=== PATIENT | male | born 1960 | race Caucasian/White ===

== ENCOUNTER → 2019-09-18 11:18 | Outpatient (BNVA) | payer MEDICAID, SELFPAY | PROVIDERS: Family Provider Family Medicine; Visit Provider Family Medicine | DX: I25.10 Atherosclerotic heart disease of native coronary artery without angina pectoris (principal); J44.9 Chronic obstructive pulmonary disease, unspecified; K76.9 Liver disease, unspecified; E78.5 Hyperlipidemia, unspecified; G62.9 Polyneuropathy, unspecified; R53.83 Other fatigue; E03.9 Hypothyroidism, unspecified | CPT/HCPCS: 85025 ==

== ENCOUNTER 2019-10-18 08:32 | Outpatient (CLI) | payer MEDICAID, SELFPAY ==
--- NOTE | 2019-10-18 08:45 | US_ITS ---
WS: [id number] Complete ABDOMINAL ULTRASOUND HISTORY: Hx liver dz, Abdominal bloating COMPARISON: 03/08/2019 Liver: 18.9 cm in length. Liver is moderately enlarged with mild hepatic steatosis. No bile duct dila tation. Gallbladder: Gallbladder is abnormally distended. Mildly hydropic gallbladder with a transverse diame ter 4.7 cm. Similar pattern to the prior CTA from 03/08/2019. No stones are identified today. Stones w ere evident on a prior CT. No gallbladder wall thickening. Positive Vale sign. Gallbladder wall thickness: 0.2 cm. Pancreas: Normal size and echogenicity. CBD: 0.4 cm. Right kidney: 12.5 cm x 4.2 cm x 4.4 cm. No mass, cortical thickening or hydronephrosis. Left kidney: 10.1 cm x 6.3 cm x 6.7 cm. No mass, cortical thickening or hydronephrosis. Spleen: Normal size and echogenicity. Abdominal aorta and IVC are within normal limits. No ascites. US/US abdomen complete* [id number] IMPRESSION: 1. Mildly hydropic gallbladder. No stones identified today. Stones have been p reviously seen within the gallbladder. Patient does demonstrate a positive Murp hy sign. Common bile duct is not evident today but a small amount of sludge or stones in the common bile duct cannot be excluded. 2. Common bile duct not evident. 3. Hepatomegaly and hepatic steatosis. Attempted to contact Dr. Pendleton with report. Neither Dr. Pendleton or her nurs e were available at this time. Message was left on the answering service for em to review the report. Patient will be given the option to report to the [facility] department.
== END 2019-10-18 08:33 | disposition home or self-care (01) ==
PROVIDERS: Family Provider Family Medicine; Visit Provider Family Medicine
DX: K76.9 Liver disease, unspecified (principal); R14.0 Abdominal distension (gaseous); R16.0 Hepatomegaly, not elsewhere classified; K76.0 Fatty (change of) liver, not elsewhere classified
CPT/HCPCS: 76700

== ENCOUNTER 2019-10-20 10:43 | Outpatient (CLI) | payer MEDICAID, SELFPAY ==
[2019-10-20 11:51] LABS: Basophils # 0.1 10^3/uL (0.0-0.1); Basophils % 1.6 %; Eosinophils # 0.2 10^3/uL (0.0-0.8); Eosinophils % 1.9 %; Hematocrit 35.7 % (42.0-52.0); Mean Corpuscular HGB Conc 33.6 g/dL (30.0-36.0); Mean Corpuscular Hemoglobin 36.3 pg (28.0-34.0); Mean Corpuscular Volume 107.9 fL (80-94); Mean Platelet Volume 10.3 fL (7.4-10.4); Monocytes # 1.1 10^3/uL (0.2-0.9); Monocytes % 12.2 %; Neutrophils # 4.4 10^3/uL (1.8-7.7); Neutrophils % 49.8 %; Nucleated Red Blood Cells % 0 %; Platelet Count 102 10^3/cmm (130-400); Red Blood Count 3.31 10^6/uL (4.1-5.3); White Blood Count 8.8 10^3/uL (4.0-10.0)
[2019-10-20 11:56] LABS: INR 1.91 (0.8-1.2)
== END 2019-10-20 10:44 | disposition home or self-care (01) ==
LOC: LAB 10:47
PROVIDERS: PCP Family Medicine; Visit Provider Surgery
DX: K76.9 Liver disease, unspecified (principal)
CPT/HCPCS: 85025; 85610

== ENCOUNTER 2019-10-25 09:28 | Outpatient (CLI) | payer MEDICAID, SELFPAY ==
[2019-10-25 10:30] LABS: Alanine Aminotransferase 22 U/L (0-41); Albumin Level 3.4 g/dL (3.5-5.2); Alkaline Phosphatase 214 IU/L (40-130); Anion Gap 14.4 (5-19); Aspartate Amino Transferase 52 U/L (0-40); Blood Urea Nitrogen 8 mg/dL (6-20); Calcium 9.9 mg/dL (8.5-10.5); Carbon Dioxide 26 mmol/L (22-29); Chloride 101 mmol/L (98-107); Globulin 4.8 g/dL (1.3-4.6); Glomerular Filtration Rate 99.3 mL/min (90-130); Glucose 121 mg/dL (65-115); Osmolality Calculated 283 mOsm/kg (285-295); Potassium 3.4 mmol/L (3.5-5.1); Sodium 138 mmol/L (136-145); Total Bilirubin 6.6 mg/dL (0.15-1.2); Total Protein 8.2 g/dL (6.6-8.7)
== END 2019-10-25 09:29 | disposition home or self-care (01) ==
LOC: LAB 09:31
PROVIDERS: PCP Family Medicine; Visit Provider Surgery
DX: K76.9 Liver disease, unspecified (principal)
CPT/HCPCS: 80053

== ENCOUNTER → 2019-11-01 11:45 | Outpatient (BNVA) | payer MEDICAID, SELFPAY | PROVIDERS: PCP Family Medicine; Referring Provider Surgery; Visit Provider Internal Medicine | DX: K70.9 Alcoholic liver disease, unspecified (principal); K75.81 Nonalcoholic steatohepatitis (NASH); B19.20 Unspecified viral hepatitis C without hepatic coma; R10.11 Right upper quadrant pain | CPT/HCPCS: 80053; 80061; 82105; 86705; 86706; 86709; 86803; 87340 ==

== ENCOUNTER 2019-11-03 09:12 | Outpatient (CLI) | payer MEDICAID, SELFPAY ==
--- NOTE | 2019-11-03 09:41 | NM_ITS ---
WS: [id number] NUCLEAR MEDICINE HIDA SCAN HISTORY: UNSPECIFIED ABDOMINAL PAIN COMPARISON: Abdomen ultrasound 10/18/2019 TECHNIQUE: The patient was intravenously injected with 7.9 mCi of TC99m Mebrofenin. Immediate imaging over the right upper quadrant was followed by 5 minute image and additional images for a total of 60 minutes. Normal uptake of radiotracer throughout the liver. The gallbladder is not identified at 120 minutes. No hyperemia of the gallbladder fossa. Activity in the proximal small bowel was seen by 20 minutes. Good washout of the radiotracer from the liver by 120 minutes. NM/NM hepatobiliary wo phar [id number] IMPRESSION: 1. No common bile duct obstruction. 2. Gallbladder is not identified. Cystic duct obstruction versus overly disten ded gallbladder preventing reflux of radiotracer should be considered as possi ble etiologies.
== END 2019-11-03 09:13 | disposition home or self-care (01) ==
LOC: RAD 09:15
PROVIDERS: PCP Family Medicine; Visit Provider Surgery
DX: R10.9 Unspecified abdominal pain (principal)
CPT/HCPCS: 78226; A9537

== ENCOUNTER 2019-11-26 14:20 | Emergency (ER) | payer MEDICAID, SELFPAY ==
[2019-11-26 14:41] VITALS: BP 135/61; PULSE 70; RESP 16; TEMP 37; O2SAT 97; BMI 28.1
--- NOTE | 2019-11-26 14:42 | ED_ITS ---
HPI - General Adult General: Chief complaint: Skin/Abscess/Foreign Body Stated complaint: bleeding ear post surgery Time Seen by Provider: 11/26/19 14:42 Source: patient Mode of arrival: ambulatory Limitations: no limitations History of Present Illness: HPI narrative: Patient comes in for persistent bleeding to the surgical wound of his left ear. 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 Patient has had persistent oozing and bleeding from the wound on and off since the surgery. Patient yesterday was seen in the emergency department at [facility] in [place] and a suture was introduced to the ear to control the bleeding. Patient has a history of liver disease and alcoholism. Patient reports no alcohol for the last 3 to 4 weeks. In which she has stopped in order to protect his liver. Patient does continue to smoke. Review of patient's medical records notes that patient takes aspirin and Plavix. Procedure was done by Dr. Moya through [facility] dermatology in [place]. Review of Systems General: Reports: 10 or more systems reviewed and unremarkable except in HPI and below Skin/Breast: Reports: other (Bleeding surgical wound left ear) PFSH ED PFSH: Medical History (Updated 11/26/19 @ 16:21 by JORDAN Cash) Alcoholic liver disease Chronic congestive heart failure Coronary artery disease without angina pectoris Gastroesophageal reflux disease Hyperlipidemia Hypertension Liver disease Neuropathy PAD (peripheral artery disease) Postprandial abdominal pain in right upper quadrant S/P angiogram of extremity Surgical History H/O vasectomy History of colonoscopy with polypectomy History of coronary angioplasty with insertion of stent Family History Denies family history of Anesthesia complication Bleeding disorder Social History (Updated 11/20/19 @ 10:51 by Rose Baker CMA) Smoking and tobacco status: current every day smoker cigarettes Packs smoked per day: 1 Quit status (tobacco): not considering quitting Alcohol intake: former Former alcohol use details: Quit November 05. Desire information about alcohol rehabilitation?: No Desire information about substance/drug rehabilitation?: No Current gender identity: Male Physical Exam Const: COMMON NORMALS: no acute distress and patient oriented x3 GENERAL APPEARANCE: cooperative HENMT: COMMON NORMALS: normocephalic and Normal external nose present HEAD & SCALP: normal to inspection and normocephalic NOSE: Normal external nose present MOUTH: Normal oral and palatal mucosa present Eye: GENERAL EYE: appearance normal, both eyes and all related structures Neck/C-Spine: COMMON NORMALS: full ROM Chest: COMMONS NORMALS: normal inspection of the chest Resp: COMMON NORMALS: normal respiratory effort EFFORT & INSPECTION: Yes able to speak in complete sentences Cardio: COMMON NORMALS: regular rate and regular rhythm RATE: regular rate RHYTHM: regular rhythm GI: COMMON NORMALS: non-tender Back/Pelvis: COMMON NORMALS: thoracic and lumbar spine normal to inspection Extremity: COMMON NORMALS: normal to inspection Neuro: COMMON NORMALS: patient oriented x3 and moves all extremities Psych: COMMON NORMALS: mental status grossly normal and cooperative Skin: NARRATIVE SKIN EXAM: Oozing surgical wound to the left earlobe. Sanguineous drainage is noted. Course ED course: 1634, talked with Lala German PA-C, at Dr. Moya's office regarding patient's persistent bleeding from surgical wound. She recommended we go ahead and redress and then have patient come to the office tomorrow for further evaluation and treatment. Vital Signs: Vital signs: Vital Signs Temperature 98.6 F 11/26/19 14:41 Pulse Rate 70 11/26/19 15:09 Respiratory Rate 16 11/26/19 15:09 Blood Pressure 142/65 11/26/19 15:09 Pulse Oximetry 97 11/26/19 15:09 MDM - General Adult MDM Narrative: Medical decision making narrative: Patient presents today with complaints of bleeding from surgical wound to the left ear. Patient had a squamous cell carcinoma removed by a Dr. Moya, intranet developer, at [facility] in [place]. On exam we note a oozing wound to the left earlobe. Respirations were even lungs were clear to auscultation. Patient did have a small hematoma extending down the right side of his neck. Differential diagnosis includes hematoma, liver disease, anemia, surgical bleeding. Surgicel was used to apply to the wound in order to stop bleeding. Patient had good results. Pressure dressing was applied and patient was recommended to leave the dressing in place. Contacted Dr. Moya's office and talk to on-call staff Lala German PA-C. She agreed to have patient follow-up in the morning at his office for further treatment as needed. Hemoglobin was 9.9. It was incidentally found patient to have a potassium of 2.6 patient was given 40 mg of potassium chloride p.o. and then written a prescription for 20 mEq daily for the next 14 days. Patient does routinely take furosemide but does not take potassium for supplementation. Reviewed exam with patient and family with recommendations for follow-up. Family reported understanding. Lab Data: Labs: Lab Results 11/26/19 11/26/19 11/26/19 Range/Units 15:20 15:20 15:20 WBC 7.4 (4.0-10.0) 10^3/ uL RBC 2.67 L (4.1-5.3) 10^6/u L Hgb 9.9 L (11.7-16.6) g/dL Hct 28.8 L (42.0-52.0) % MCV 107.9 H (80-94) fL MCH 37.1 H (28.0-34.0) pg MCHC 34.4 (30.0-36.0) g/dL RDW 17.3 H (12.1-15.1) % Plt Count 89 L (130-400) 10^3/c mm MPV 9.6 (7.4-10.4) fL Neut % (Auto) 56.3 % Lymph % (Auto) 19.7 % [place] % (Auto) 20.7 % Eos % (Auto) 1.4 % Baso % (Auto) 1.6 % Neut # (Auto) 4.2 (1.8-7.7) 10^3/u L Lymph # (Auto) 1.5 (0.8-4.8) 10^3/u L [place] # (Auto) 1.5 H (0.2-0.9) 10^3/u L Eos # (Auto) 0.1 (0.0-0.8) 10^3/u L Baso # (Auto) 0.1 (0.0-0.1) 10^3/u L Nucleated RBC % (a uto) 0 % Nucleated RBCs # 0.0 /100WBC PT 29.30 H (10.5-13.3) SECO NDS INR 2.65 H (0.8-1.2) Sodium 132 L (136-145) mmol/L Potassium 2.6 L* (3.5-5.1) mmol/L Chloride 95 L (98-107) mmol/L Carbon Dioxide 25 (22-29) mmol/L Anion Gap 14.6 (5-19) BUN 14 (6-20) mg/dL Creatinine 1.1 (0.7-1.2) mg/dL GFR Calculation 68.8 L (90-130) mL/min Glucose 126 H (65-115) mg/dL Calculated Osmolal ity 272 L (285-295) mOsm/k g Calcium 9.0 (8.5-10.5) mg/dL Total Bilirubin 9.2 H* (0.15-1.2) mg/dL AST 67 H (0-40) U/L ALT 37 (0-41) U/L Alkaline Phosphata se 185 H (40-130) IU/L Total Protein 6.8 (6.6-8.7) g/dL Albumin 2.7 L (3.5-5.2) g/dL Globulin 4.1 (1.3-4.6) g/dL Discharge Plan Discharge Patient Disposition: Home, Self-Care Clinical Impression: Alcoholic liver disease, Drug-induced hypokalemia Postoperative hemorrhage of ear Qualifiers: Procedure type: ear Qualified Code(s): H95.41 - Postprocedural hemorrhage of ear and mastoid process following a procedure on the ear and mastoid process Condition: Stable Prescriptions: New potassium chloride 20 mEq tablet extended release 20 meq PO DAILY Qty: 14 RF: 0 No Action aspirin [Aspirin Low Dose] 81 mg tablet,delayed release (DR/EC) 81 mg PO DAILY RF: 0 atorvastatin 40 mg tablet 40 mg PO DAILY Qty: 30 RF: 0 carvedilol [Coreg] 3.125 mg tablet 3.125 mg PO BID 30 Days Qty: 60 RF: 0 clopidogrel [Plavix] 75 mg tablet 75 mg PO DAILY Qty: 30 RF: 0 fluticasone propionate [Flonase Allergy Relief] 50 mcg/actuation spray,suspension 1 spray INTRANASAL DAILY Qty: 18.2 RF: 0 furosemide 20 mg tablet 20 mg PO DAILY Qty: 30 RF: 0 pantoprazole 40 mg tablet,delayed release (DR/EC) 40 mg PO DAILY Qty: 30 RF: 0 gabapentin 300 mg capsule See Rx Instructions PO TID 30 Days Qty: 90 RF: 2 cephalexin 500 mg Tablet 500 mg PO TID RF: 0 Referrals: Estrella Pendleton MD [Primary Care Provider] - Discharge Diet: Usual diet Discharge Activity: Limit activity as instructed Activity Restrictions/Additional Instructions: Avoid dressing change. Keep pressure dressing intact. Follow-up with surgeon in the morning. Coding Level of Care Code ED Basket Mender for Chg Fwd Exam Comprehensive
[2019-11-26 15:09] VITALS: BP 142/65; PULSE 70; RESP 16; O2SAT 97
[2019-11-26 15:27] LABS: Basophils # 0.1 10^3/uL (0.0-0.1); Basophils % 1.6 %; Eosinophils # 0.1 10^3/uL (0.0-0.8); Eosinophils % 1.4 %; Hematocrit 28.8 % (42.0-52.0); Hemoglobin 9.9 g/dL (11.7-16.6); Lymphocytes # 1.5 10^3/uL (0.8-4.8); Lymphocytes % 19.7 %; Mean Corpuscular HGB Conc 34.4 g/dL (30.0-36.0); Mean Corpuscular Hemoglobin 37.1 pg (28.0-34.0); Mean Corpuscular Volume 107.9 fL (80-94); Mean Platelet Volume 9.6 fL (7.4-10.4); Monocytes # 1.5 10^3/uL (0.2-0.9); Monocytes % 20.7 %; Neutrophils # 4.2 10^3/uL (1.8-7.7); Neutrophils % 56.3 %; Nucleated Red Blood Cells % 0 %; Platelet Count 89 10^3/cmm (130-400); Red Blood Count 2.67 10^6/uL (4.1-5.3); Red Cell Distribution Width 17.3 % (12.1-15.1); White Blood Count 7.4 10^3/uL (4.0-10.0)
[2019-11-26 15:35] LABS: INR 2.65 (0.8-1.2)
[2019-11-26 15:40] LABS: Alanine Aminotransferase 37 U/L (0-41); Albumin Level 2.7 g/dL (3.5-5.2); Alkaline Phosphatase 185 IU/L (40-130); Anion Gap 14.6 (5-19); Aspartate Amino Transferase 67 U/L (0-40); Blood Urea Nitrogen 14 mg/dL (6-20); Carbon Dioxide 25 mmol/L (22-29); Chloride 95 mmol/L (98-107); Globulin 4.1 g/dL (1.3-4.6); Glomerular Filtration Rate 68.8 mL/min (90-130); Glucose 126 mg/dL (65-115); Osmolality Calculated 272 mOsm/kg (285-295); Sodium 132 mmol/L (136-145); Total Protein 6.8 g/dL (6.6-8.7)
[2019-11-26 15:46] LABS: Potassium 2.6 mmol/L (3.5-5.1)
[2019-11-26 15:47] LABS: Total Bilirubin 9.2 mg/dL (0.15-1.2)
[2019-11-26] MEDS: potassium chloride ER 10 mEq Tablet 40 MEQ PO (16:35)
[2019-11-26] MEDS: HYDROcodone-acetaminophen 7.5-325 mg Tablet 1 TAB PO (17:03)
[2019-11-26 17:08] VITALS: BP 128/66; PULSE 70; RESP 14; O2SAT 96
== END 2019-11-26 17:09 | disposition home or self-care (01) ==
PROVIDERS: Emergency Provider Nurse Practitioner Family; PCP Family Medicine
DX: H95.41 Postprocedural hemorrhage of ear and mastoid process following a procedure on the ear and mastoid process (principal); K70.9 Alcoholic liver disease, unspecified; E87.6 Hypokalemia; Z79.82 Long term (current) use of aspirin; Z79.02 Long term (current) use of antithrombotics/antiplatelets; I11.0 Hypertensive heart disease with heart failure; I50.9 Heart failure, unspecified; I25.10 Atherosclerotic heart disease of native coronary artery without angina pectoris; E78.5 Hyperlipidemia, unspecified; Z95.5 Presence of coronary angioplasty implant and graft; F17.210 Nicotine dependence, cigarettes, uncomplicated
CPT/HCPCS: 12345; 36415; 80053; 85025; 85610; 99281; 99283

== ENCOUNTER → 2019-12-04 13:47 | Outpatient (BNVA) | payer MEDICAID, SELFPAY | PROVIDERS: PCP Family Medicine; Visit Provider Family Medicine | DX: K70.9 Alcoholic liver disease, unspecified (principal); R10.11 Right upper quadrant pain | CPT/HCPCS: 80053; 85610 ==

== ENCOUNTER → 2019-12-11 09:19 | Day surgery (SDC) | payer MEDICAID, SELFPAY ==
[2019-12-07 14:36] VITALS: BMI 29.2
[2019-12-11] VITALS (7 sets, daily range): BP systolic 63–102; BP diastolic 49–73; PULSE 98–169; RESP 18–22; TEMP 36.8; O2SAT 94–100
--- NOTE | 2019-12-11 09:42 | ECG_ITS ---
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 Measurements Intervals [place] Rate: 168 P: IN: -1 QRS: -31 QRSD: 92 T: 125 QT: 235 QTc: 393 Interpretive Statements ATRIAL FIBRILLATION WITH RAPID VENTRICULAR RESPONSE MARKED LEFT AXIS DEVIATION [QRS AXIS < -30] ST DEVIATION AND MODERATE T-WAVE ABNORMALITY, CONSIDER LATERAL ISCHEMIA [-0.1+ mV T WAVE IN I/aVL/V5/V6] Compared to ECG 03/22/2019 06:01:03 Left-axis deviation now present T-wave abnormality now present Possible ischemia now present Sinus rhythm no longer present Electronically Signed On 12-11-2019 21:45:35 CDT by Forest Arnold M.D. [id number]
[2019-12-11] MEDS: lactated ringers 1,000 ML 999 ML IV (10:00)
[2019-12-11 11:06] LABS: Basophils # 0.1 10^3/uL (0.0-0.1); Basophils % 0.7 %; Eosinophils # 0.2 10^3/uL (0.0-0.8); Eosinophils % 1.2 %; Lymphocytes # 2.9 10^3/uL (0.8-4.8); Lymphocytes % 21.4 %; Mean Corpuscular HGB Conc 30.8 g/dL (30.0-36.0); Mean Corpuscular Hemoglobin 37.8 pg (28.0-34.0); Mean Corpuscular Volume 122.6 fL (80-94); Monocytes # 1.4 10^3/uL (0.2-0.9); Neutrophils # 9.1 10^3/uL (1.8-7.7); Neutrophils % 66.2 %; Nucleated Red Blood Cells % 0.1 %; Platelet Count 149 10^3/cmm (130-400); Red Blood Count 1.64 10^6/uL (4.1-5.3); White Blood Count 13.7 10^3/uL (4.0-10.0)
[2019-12-11 11:18] LABS: Hematocrit 20.1 % (42.0-52.0); Hemoglobin 6.2 g/dL (11.7-16.6)
--- NOTE | 2019-12-11 11:31 | PC.NURSE ---
0930- Pt here for EGD and COLONOSCOPY. Pt's heart rate was high, 120-150, and BP was low at 63/51. I notified anesthesia before we got pt ready, and Dr Hedrick ordered an EKG, some lab work, and an LR 500ml IV bolus. All this was done, and EKG showed A-fib with RVR. Notified Dr Michelle, and called heart care. His Program Facilitator could not see him and nurse said for pt to be taken to ER. 1100- Pt taken to ER, and report given. I also notified pts sister, who was his ride home.
--- NOTE | 2019-12-11 13:55 | ANES.PREANE2 ---
Pre-Anesthetic Assessment Pre-Anesthetic Assessment: Height/Weight: Height 1.7 m Weight 84.822 kg Temp Pulse Resp BP Pulse Ox 98.2 F 98 20 H 102/66 100 12/11/19 09:30 12/11/19 10:51 12/11/19 10:51 12/11/19 10:51 12/11/19 10:51 Preop Diagnosis: d Proposed Procedure: Operation Date: 12/11/19 10:00 Proposed Procedures p EGD/colon 33711 [id number] R10.11 K63.5(Not Applicable) - Salazar Michelle MD s Colonoscopy(Not Applicable) - Salazar Michelle MD Social: Social History: Alcohol (quit november 05) and Tobacco Exam: Pre-Anes Outpt Exam: alert, oriented x 3, clear to auscultation bilaterally and regular rate & rhythm Airway: Submandibular: WNL Cervical ROM: WNL MP: 2 Dentition: Other (poor dentation) History/ROS: No significant history except as noted Pulmonary: Pulmonary: ALBARADO CV/HEM: CV/HEM: CAD (h/o stent), CHF and HTN : : None reported Hepatic: Comments: alcoholic liver dz GI: GI: None reported Metabolic: Metabolic: Hyperlipidemia Musc/skel: Comments: skin ca Neuropsych: Neuropsych: None reported Anesthetic Plan: ASA status: 4 Anesthesia: Anesthesia Evaluation and MAC Risk of > 500 ml blood loss (7ml/kg in children): No PFSH Anesthesia PFSH: Medical History Alcoholic liver disease Chronic congestive heart failure Coronary artery disease without angina pectoris Gastroesophageal reflux disease Hyperlipidemia Hypertension Liver disease Neuropathy PAD (peripheral artery disease) Postprandial abdominal pain in right upper quadrant S/P angiogram of extremity Surgical History H/O vasectomy History of colonoscopy with polypectomy History of coronary angioplasty with insertion of stent Family History Denies family history of Anesthesia complication Bleeding disorder Social History Smoking and tobacco status: current every day smoker cigarettes Packs smoked per day: 1 Quit status (tobacco): not considering quitting Alcohol intake: former Former alcohol use details: Quit November 05. Desire information about alcohol rehabilitation?: No Desire information about substance/drug rehabilitation?: No Current gender identity: Male Data Anesthesia CBC & Chem 7: 12/11/19 10:45 12/11/19 10:45 Other Labs: Laboratory Results - last 48 hr 12/11/19 12/11/19 10:45 10:45 WBC 13.7 H RBC 1.64 L Hgb 6.2 L* Hct 20.1 L* MCV 122.6 H MCH 37.8 H MCHC 30.8 RDW 19.0 H Plt Count 149 MPV 10.0 Neut % (Auto) 66.2 Lymph % (Auto) 21.4 [place] % (Auto) 10.0 Eos % (Auto) 1.2 Baso % (Auto) 0.7 Neut # (Auto) 9.1 H Lymph # (Auto) 2.9 [place] # (Auto) 1.4 H Eos # (Auto) 0.2 Baso # (Auto) 0.1 Nucleated RBC % (auto) 0.1 Nucleated RBCs # 0.0 Sodium Cancelled Potassium Cancelled Chloride Cancelled Carbon Dioxide Cancelled Anion Gap Cancelled BUN Cancelled Creatinine Cancelled GFR Calculation Cancelled Glucose Cancelled Calculated Osmolality Cancelled Calcium Cancelled Cardiac Studies: No Data to Display
== END ==
PROVIDERS: Anesthesiology; PCP Family Medicine; Visit Provider Internal Medicine
PROC: 0DJ08ZZ Inspection of Upper Intestinal Tract, Via Natural or Artificial Opening Endoscopic (ICD-10-PCS; CPT 43235; principal; 2019-12-11 10:00)
DX: R10.11 Right upper quadrant pain (principal); K63.5 Polyp of colon; Z53.9 Procedure and treatment not carried out, unspecified reason
CPT/HCPCS: 36415; 43235; 45378; 85025; 93005; 96365; 99398; J0171

== ENCOUNTER 2019-12-11 11:05 | Emergency (ER) | payer MEDICAID, SELFPAY | END 2019-12-11 13:26 | disposition admitted as inpatient to this hospital (09) | LOC: ER 12-15 02:17 | PROVIDERS: Emergency Provider Emergency Medicine; PCP Family Medicine | DX: K70.9 Alcoholic liver disease, unspecified (principal); D64.9 Anemia, unspecified; I48.91 Unspecified atrial fibrillation; F17.210 Nicotine dependence, cigarettes, uncomplicated; I11.0 Hypertensive heart disease with heart failure; I50.9 Heart failure, unspecified; I25.10 Atherosclerotic heart disease of native coronary artery without angina pectoris; E78.5 Hyperlipidemia, unspecified; Z95.5 Presence of coronary angioplasty implant and graft | CPT/HCPCS: 12345; 36415; 71045; 80053; 80307; 83690; 85610; 86850; 86900; 86920; 93005; 96375; 99283; 99285; C9113 ==

== ENCOUNTER 2019-12-11 11:05 | Inpatient (IN) | payer MEDICAID, SELFPAY ==
[2019-12-11] VITALS (38 sets, daily range): BP systolic 92–129; BP diastolic 51–95; PULSE 81–106; RESP 10–28; TEMP 36.4–36.9; O2SAT 97–100; BMI 28.1; BMI 28.0
--- NOTE | 2019-12-11 11:12 | ED_ITS ---
HPI - Arrhythmia/Palpitations General: Chief Complaint: General Medical Stated Complaint: HYPOTENSION, INCREASED HEARTRATE Time Seen by Provider: 12/11/19 11:07 Source: patient Mode of arrival: ambulatory Limitations: no limitations History of Present Illness: HPI narrative: 59-year-old male who presents here from GI lab. Patient was scheduled for an EGD and a colonoscopy today. Patient states he is quite nervous and over there he was in A. fib with RVR heart rates in 160s. Patient was also hypotensive over there. Patient was brought over here and when he arrived here he since converted and his heart rate is now 96 and blood pressure 103/67. He states he feels much improved. He has a long history of cirrhosis along with jaundice. He denies any recent bleeding. MD complaint: rapid heart beat Associated symptoms: Deny nausea or vomiting Review of Systems Const: Denies: fever(s), chills, body aches or change in appetite Eyes: Denies: blurry vision or eye discomfort ENMT: Denies: throat pain or dental pain Card: Reports: palpitations Resp: Denies: dyspnea GI: Denies: abdominal pain, nausea, vomiting or diarrhea : Denies: dysuria Musc: Denies: neck pain or back pain Skin/Breast: Denies: rash Neuro: Denies: headache(s) Psych: Denies: depression Mirza/Lymph: Denies: easy bruising All/Imm: Denies: urticaria PFSH ED PFSH: Medical History Alcoholic liver disease Chronic congestive heart failure Coronary artery disease without angina pectoris Gastroesophageal reflux disease Hyperlipidemia Hypertension Liver disease Neuropathy PAD (peripheral artery disease) Postprandial abdominal pain in right upper quadrant S/P angiogram of extremity Surgical History H/O vasectomy History of colonoscopy with polypectomy History of coronary angioplasty with insertion of stent Family History Denies family history of Anesthesia complication Bleeding disorder Social History Smoking and tobacco status: current every day smoker cigarettes Packs smoked per day: 1 Quit status (tobacco): not considering quitting Alcohol intake: former Former alcohol use details: Quit November 05. Desire information about alcohol rehabilitation?: No Desire information about substance/drug rehabilitation?: No Current gender identity: Male Physical Exam Const: COMMON NORMALS: no acute distress and patient oriented x3 GENERAL APPEARANCE: ill appearing HENMT: COMMON NORMALS: normocephalic and atraumatic HEAD & SCALP: normoceph alic and atraumatic Eye: COMMON NORMALS: Equal, round and reactive pupils present and EOMs intact bilaterally PUPIL: Yes Equal, round and reactive pupils present Neck/C-Spine: COMMON NORMALS: full ROM and supple Chest: COMMONS NORMALS: normal inspection of the chest and normal palpation of entire chest wall Resp: COMMON NORMALS: normal respiratory effort, No retractions, No use of accessory muscles and clear to auscultation bilaterally AUSCULTATION: clear to auscultation bilaterally Cardio: COMMON NORMALS: regular rate, regular rhythm and No murmurs present (Cardio) RATE: regular rate RHYTHM: regular rhythm GI: COMMON NORMALS: Normal to inspection, nondistended, normoactive bowel sounds present, Soft to palpation, non-tender and no masses PALPATION: Yes Soft to palpation Extremity: COMMON NORMALS: normal to inspection and full ROM Neuro: COMMON NORMALS: patient oriented x3, moves all extremities and no focal motor deficits Psych: COMMON NORMALS: mental status grossly normal, Normal thought process present and cooperative THOUGHT PROCESS: Normal thought process present Skin: COMMON NORMALS: no rashes or lesions noted and no wounds NARRATIVE SKIN EXAM: Jaundiced GENERAL SKIN EXAM: no rashes or lesions noted Course Vital Signs: Vital signs: Vital Signs Temperature 97.9 F 12/11/19 11:08 Pulse Rate 106 H 12/11/19 11:38 Respiratory Rate 18 12/11/19 11:38 Blood Pressure 107/61 12/11/19 11:38 Pulse Oximetry 100 12/11/19 11:38 MDM - Arrhythmia/Palpitations MDM Narrative: Medical decision making narrative: Patient presents here with anemia along with history of liver failure. Patient's rectal exam here showed no blood. I spoke to hospitalist will admit to ICU and transfuse. Patient also seen by Dr. Michelle who is going to do an EGD. Lab Data: Labs: Lab Results 12/11/19 12/11/19 12/11/19 Range/Units 10:00 11:30 11:30 PT 33.90 H (10.5-13.3) SECO NDS INR 3.19 H (0.8-1.2) Sodium 137 (136-145) mmol/L Potassium 3.2 L (3.5-5.1) mmol/L Chloride 103 (98-107) mmol/L Carbon Dioxide 14 L (22-29) mmol/L Anion Gap 23.2 H (5-19) BUN 10 (6-20) mg/dL Creatinine 1.2 (0.7-1.2) mg/dL GFR Calculation 62.2 L (90-130) mL/min Glucose 107 (65-115) mg/dL Calculated Osmolal ity 280 L (285-295) mOsm/k g Calcium 9.1 (8.5-10.5) mg/dL Total Bilirubin 7.2 H* (0.15-1.2) mg/dL AST 96 H (0-40) U/L ALT 58 H (0-41) U/L Alkaline Phosphata se 179 H (40-130) IU/L Total Protein 7.6 (6.6-8.7) g/dL Albumin 2.8 L (3.5-5.2) g/dL Globulin 4.8 H (1.3-4.6) g/dL Lipase 778 H (13-60) U/L Blood Type O Positive Rho(D) Type Positive Antibody Screen Negative Crossmatch See Detail Imaging Data^: CXR: Radiologist's impression: [address] [address] XRay Report Signed Patient: Srikanth Reynoso Unit #: [id number] : 1960 Age/Sex: 59 / M ADM Date: 12/11/19 Loc: ER Room/Bed: Attending Dr: Ordering Provider/Ordering MD: Katalina Henry MD Date of Service: 12/11/19 Procedure(s): XR chest 1V portable [id number] Accession Number(s): [id number] Report Number: [id number] PROCEDURE INFORMATION: Exam: XR Chest, 1 View Exam date and time: 12/11/2019 11:42 AM Age: 59 years old Clinical indication: Condition or disease; Other: Afib; Prior surgery; Surgery type: Stent TECHNIQUE: Imaging protocol: XR of the chest Views: 1 view. COMPARISON: No relevant prior studies available. FINDINGS: Lungs: Hyperinflation and mild interstitial prominence. No acute airspace disease. Pleural space: No pleural effusion. New Heart/Mediastinum: No cardiomegaly. Bones/joints: Osteopenia. XR/XR chest 1V portable [id number] IMPRESSION: Hyperinflation , without acute airspace or pleural disease. Critical Care Time Critical Care Time: Critical Care Time: Yes Total Critical Care Time: 36 Attestation: This case had a high probability of a clinically significant, sudden, or life threatening deterioration of this patient's condition which required my full and direct attention, intervention and personal management. Discharge Plan Discharge Patient Disposition: Admitted As Inpatient Clinical Impression: Alcoholic liver disease Anemia Qualifiers: Anemia type: unspecified type Qualified Code(s): D64.9 - Anemia, unspecified Atrial fibrillation Qualifiers: Atrial fibrillation type: unspecified Qualified Code(s): I48.91 - Unspecified atrial fibrillation Condition: Stable Referrals: Estrella Pendleton MD [Primary Care Provider] - Coding Level of Care Code ED Grid Caster for [facility] Fwd Exam Comprehensive
--- NOTE | 2019-12-11 11:12 | ECG_ITS ---
[facility] Test Date: 2019-12-11 Pat Name: Srikanth Reynoso Department: Room: Gender: Male Impress Associate: : 1960 Requested By: Katalina Henry Order Number: [id number] Yanira MD: Forest Arnold M.D. Measurements Intervals [place] Rate: 97 P: 16 [place]: 120 QRS: -7 QRSD: 97 T: 51 QT: 355 QTc: 452 Interpretive Statements SINUS RHYTHM Compared to ECG 12/11/2019 09:54:42 Atrial fibrillation no longer present Left-axis deviation no longer present T-wave abnormality no longer present Possible ischemia no longer present Electronically Signed On 12-11-2019 21:40:59 CDT by Forest Arnold M.D. [id number] f
[2019-12-11 11:59] LABS: Anion Gap 23.2 (5-19); Carbon Dioxide 14 mmol/L (22-29); Chloride 103 mmol/L (98-107); Potassium 3.2 mmol/L (3.5-5.1); Sodium 137 mmol/L (136-145)
[2019-12-11 12:00] LABS: Alanine Aminotransferase 58 U/L (0-41); Albumin Level 2.8 g/dL (3.5-5.2); Alkaline Phosphatase 179 IU/L (40-130); Aspartate Amino Transferase 96 U/L (0-40); Blood Urea Nitrogen 10 mg/dL (6-20); Calcium 9.1 mg/dL (8.5-10.5); Globulin 4.8 g/dL (1.3-4.6); Glomerular Filtration Rate 62.2 mL/min (90-130); Glucose 107 mg/dL (65-115); Lipase 778 U/L (13-60); Osmolality Calculated 280 mOsm/kg (285-295); Total Protein 7.6 g/dL (6.6-8.7)
[2019-12-11 12:01] LABS: Total Bilirubin 7.2 mg/dL (0.15-1.2)
[2019-12-11 12:11] LABS: INR 3.19 (0.8-1.2)
[2019-12-11 12:44] LABS: Alcohol Level < 10 mg/dL (0-10)
[2019-12-11] MEDS: pantoprazole 40 mg SDV 80 MG IVP (12:51)
[2019-12-11 13:14] LABS: Lactic Sepsis W/Reflex 3.5 mmol/L (0.5-2.2)
[2019-12-11 13:20] LABS: Iron 42 ug/dL (59-158); Percent Saturation 28.9 % (20-50); Total Iron Binding Capacity 145 mcg/dl; Unsaturated Iron Binding 103 ug/dL (112-347)
[2019-12-11] MEDS: sodium chloride 0.9% (100 ml) 100 ML (13:21)
[2019-12-11 13:27] LABS: NT Pro B Type Natriuretic Pept 418 pg/mL (0-125); Procalcitonin 0.09 ng/mL (0-0.5); Thyroid Stimulating Hormone 3.35 uIU/mL (0.27-4.20)
--- NOTE | 2019-12-11 14:35 | PC.NURSE ---
EGD/Colocscopy GI nurses at bedside, Gwendolyn Cabral LPN and Jody Marmolejo RN. Hitesh Cordova CRNA also. Patient is resting in bed and has given written and verbal consent for the procedures.
[2019-12-11 14:44] LABS: Reflex Lactate Order REFLEX LACTIC ORDERD
[2019-12-11] MEDS: piperacillin-tazobactam 3.375 GM in sodium chloride 0.9% (plus) 50 ML IV ×2 (15:17→21:11)
[2019-12-11] MEDS: dextrose 5%-sod chloride 0.9% 1,000 ML 75 ML IV (15:17)
--- NOTE | 2019-12-11 15:21 | CTR_ITS ---
PROCEDURE INFORMATION: Exam: CT Maxillofacial Without Contrast Exam date and time: 12/11/2019 4:49 PM Age: 59 years old Clinical indication: Maxilla pain; Prior surgery; Surgery date: 3-7 days post-operative; Patient HX: R cheek wound from lesion excision 4 days ago w pain and drainage TECHNIQUE: Imaging protocol: Computed tomography images of the face without contrast. Radiation optimization: All CT scans at this facility use at least one of these dose optimization techniques: automated exposure control; mA and/or kV adjustment per patient size (includes targeted exams where dose is matched to clinical indication); or iterative reconstruction. COMPARISON: No relevant prior studies available. RADIATION DOSE METRICS: Total DLP (mGy-cm): 753.25 FINDINGS: Orbits: Orbits are normal. Globes are unremarkable. Bones/joints: There is nasal septal deviation towards the right. Sinuses: There is almost complete opacification of the right maxillary sinus with fluid and mucosal thickening which may represent chronic sinusitis but could be related to the adjacent dental disease. The other paranasal sinuses are normally aerated and clear. Dental: The teeth are in generally poor repair and there is extensive dental caries, mostly involving upper teeth. Lucency surrounding the roots of the right upper premolar teeth and also the 1st upper molar on the right are consistent with periapical abscesses. Soft tissues: The there is some mild skin thickening along the right side of the face in there is edema in the subcutaneous soft tissues of the right cheek and right infraorbital region which could represent postoperative edema, or cellulitis. Correlation with clinical findings is suggested. In the right cheek, underlying the surgical dressing there is in oval soft tissue density measuring 12 x 26 x 12 mm which may represent small postoperative hematoma or seroma. This has focal extension to the skin surface underlying the dressing. One could not exclude that this is infected. Correlation with clinical findings is suggested. CT/CT facial bones wo con* [id number] IMPRESSION: 1. Small probable hematoma underlying the surgical dressing in the right cheek. 2. Findings suggestive of cellulitis on the right side of the face. 3. Right maxillary sinus disease. 4. Dental caries and periodontal disease. Radiation Dose CTDIVOL = (mGy): DLP = 753.25 (mGy-cm)
[2019-12-11] MEDS: sodium chloride 0.9% 1,000 ML 999 ML IV (15:33)
--- NOTE | 2019-12-11 16:15 | P.HP_ITS ---
Providers/Chief Complaint Admitting Physician: Pancho Navarro MD Primary Care Provider: Estrella Pendleton MD Chief Complaint: HYPOTENSION, INCREASED HEARTRATE History of Present Illness Srikanth Reynoso is a 59 year old male with PMH of CAD, Severe PAD, liver cirrhosis, alcoholic liver disease, alcoholism in recovery, status post multiple intervention and past including balloon angioplasty and stent placement to common iliac and right SFA last in March 2019, squamous cell carcinoma with recent resection of tumor from the left ear 20 days ago and biopsy done on the right cheek around 4 days ago by manager of allied health services in [place] who presented to the ER today from the GI Lab where he had gone for EGD and colonoscopy with Dr. Michelle because of abdominal pain and worsening liver numbers. While in the GI lab patient developed atrial fibrillation with hypotension so was transferred to the ER. While being transferred to the ER patient converted back to normal sinus rhythm. While in ER his heart rate was 98 bpm, normal sinus rhythm, blood pressure of 130/80 mmHg, saturating 94% on room air. While in the ER blood work showed a hemoglobin of 6.2, white count of 13.7, platelet of 149, INR of 3.19, potassium of 3.2, creatinine of 1.2, sodium of 137, lactate of 3.5, bilirubin of 7.2, AST of 96 ALT of 58, alkaline phosphatase of 179, lipase of 778. Patient himself denies of any nausea, vomiting, dizziness but does complain of shortness of breath on exertion for last 1 to 2 weeks along with feeling weak. He states he has been having episodes of diarrhea which are light and colored for last 2 to 3 weeks. He denies of having any night sweats, loss of weight. He denies of having any fevers, flulike symptoms, runny nose, cough. He does complain of claudication, paresthesia in his both legs but states that is been chronic. Review of Systems Const: Denies: fever(s), chills, body aches, change in appetite, malaise, night sweats, diaphoresis, change in sleep pattern, daytime sleepiness or snoring Eyes: Denies: change in vision, blurry vision, photophobia, eye discomfort or eye discharge ENMT: Denies: throat pain, enlarged tonsils, hoarseness, mouth pain, oral sores, dry mouth, tinnitus, nasal congestion or post nasal drip Card: Reports: palpitations and irregular heart rhythm; Denies: chest pain, edema, swelling of feet/ankles, lightheadedness, syncope, pre-syncope, dyspnea on exertion, orthopnea, leg pain with exertion or acrocyanosis Resp: Reports: dyspnea and productive cough; Denies: non-productive cough, wheezing, stridor, pain on inspiration, change in phlegm color, hemoptysis or chest congestion GI: Reports: abdominal pain, nausea and diarrhea; Denies: vomiting, hematemesis, coffee ground emesis, dysphagia, heartburn, constipation, bloating, GI cramping, change in bowel habits, pain on defecation, hematochezia or melena : Denies: flank pain, difficulty urinating, dysuria, urinary frequency, urinary urgency, urinary hesitancy, urinary dribbling, difficulty starting urination, change in urine stream, nocturia or hematuria Musc: Denies: neck pain, back pain, extremity pain, joint pain, joint swelling, joint redness, joint stiffness or limited range of motion Neuro: Denies: headache(s), numbness in extremities, weakness in extremities, sensory changes, lack of coordination, difficulty walking, frequent falls, dizziness, vertigo, confusion, Slurred speech present, difficulty communicating thoughts or seizure-like activity Psych: Denies: anxiety, depression, mood swings, panic attacks, hopelessness or irritability Endo: Denies: polyuria, polydipsia, tired all the time, cold intolerance, excessive sweating, flushing or heat intolerance Mirza/Lymph: Denies: easy bruising or easy bleeding All/Imm: Denies: tongue swelling, facial swelling or acute wheezing Medications/Allergies Home Medications Medication Instructions Recorded Confirmed Last Taken Type furosemide 20 mg tablet 20 mg PO DAILY #30 tab 10/14/19 12/11/19 12/10/19 Rx potassium chloride 20 meq PO DAILY #14 tab 11/26/19 12/11/19 12/10/19 Rx gabapentin 300 mg PO QID 12/07/19 12/11/19 12/10/19 History atorvastatin 40 mg PO DAILY 12/11/19 12/11/19 11/06/19 History cephalexin 500 mg PO TID 12/11/19 12/11/19 12/10/19 History clopidogrel [Plavix] 75 mg PO DAILY 12/11/19 12/11/19 11/06/19 History Allergies Allergy/AdvReac Type Severity Reaction Status Date / Time No Known Allergies Allergy Verified 12/07/19 14:36 PFSH Acute PFSH: Medical History Alcoholic liver disease Chronic congestive heart failure Coronary artery disease without angina pectoris Gastroesophageal reflux disease Hyperlipidemia Hypertension Liver disease Neuropathy PAD (peripheral artery disease) Postprandial abdominal pain in right upper quadrant S/P angiogram of extremity Surgical History H/O vasectomy History of colonoscopy with polypectomy History of coronary angioplasty with insertion of stent Family History Denies family history of Anesthesia complication Bleeding disorder Social History Smoking and tobacco status: current every day smoker cigarettes Packs smoked per day: 1 Quit status (tobacco): not considering quitting Alcohol intake: former Former alcohol use details: Quit November 05. Desire information about alcohol rehabilitation?: No Desire information about substance/drug rehabilitation?: No Current gender identity: Male Vitals/I&O/Wt Last Vital Signs Temp 98.3 F 12/11/19 15:46 Pulse 81 12/11/19 15:46 Resp 20 H 12/11/19 15:46 BP 99/61 12/11/19 15:46 Pulse Ox 100 12/11/19 15:46 12/11/19 12/11/19 12/11/19 06:59 14:59 22:59 Intake Total 0 / 0 366.65 / 366.65 Balance 0 / 0 366.65 / 366.65 Weight last 48 hrs Weight 81.647 kg Physical Exam Narrative: EXAM NARRATIVE: General: No acute distress, AO x3, pale, icteric HEENT: PERRLA, pupils bilaterally equal and reactive, dried a bloody scar present on the left ear, raccoon eyes present, covered bandage present on the right cheek, soaked mildly with blood Chest: Normal vesicular breath sounds, no added sounds, equal good air entry bilaterally CVS: S1-S2 regular, no murmurs, no tachycardia, no gallops, no rubs Abdomen: Soft, tender in right upper quadrant, soft hepatomegaly , bowel sounds present Neuro: No focal deficits, no facial deformity, AO x3, power 5/5 in all limbs Data : 12/11/19 10:00 A&P Assessment and plan (1) Anemia: Status: Acute Qualifiers: Anemia type: unspecified type Qualified Code(s): D64.9 - Anemia, unspecified (2) Supratherapeutic INR: Status: Acute (3) Atrial fibrillation: Status: Acute Qualifiers: Atrial fibrillation type: unspecified Qualified Code(s): I48.91 - Unspecified atrial fibrillation (4) Alcoholic liver disease: Status: Acute (5) Liver cirrhosis: Status: Acute (6) Alcoholism in recovery: Status: Acute (7) Squamous cell carcinoma: Status: Acute (8) Hypertension: Status: Acute Qualifiers: Hypertension type: essential hypertension Qualified Code(s): I10 - Essential (primary) hypertension (9) Hyperlipidemia: Status: Acute Qualifiers: Hyperlipidemia type: mixed hyperlipidemia Qualified Code(s): E78.2 - Mixed hyperlipidemia (10) PAD (peripheral artery disease): Status: Acute Additional A&P Information 53-year-old gentleman past medical history of acute liver disease, liver cirrhosis, recent diagnosis squamous cell carcinoma who was due for an EGD colonoscopy presented today with development of atrial fibrillation. He was found to be acutely anemic. Acute anemia: Given history of acute liver disease cannot rule out variceal bleed. Though acute anemia could be because of blood loss anemia from his recent biopsies and excision biopsy. Occult blood test done in the ER was negative from per rectal examination. CBC suggestive of microcytic anemia Start patient on Protonix 40 mg twice daily after 80 mg IV stat dose. Octreotide GTT Check LDH, GGT, hepatitis serology checked in October 2019 was negative. Check HIV, iron panel, vitamin B12, folate levels, bilirubin total and direct. Keep n.p.o. Patient at present is not having any acute bleeding so we will withhold reversing the INR. Patient will be getting EGD colonoscopy later in the day with Dr. Michelle. Transfuse 2 units of PRBC. Check CBC every 12 hourly for now. Banana bag followed by D5 NS at 75 cc/h. Oral folate and thiamine For now withhold aspirin and Plavix. Patient states he is not taking aspirin Plavix for over a month. Acute liver disease/liver cirrhosis: Child-SALAZAR score-11 MELD score-Na score- 27 Continue with IV fluids as above. We will continue to monitor CMP daily. Check alcohol level. Start patient on Zosyn as per renal dose. Supratherapeutic INR: Depending on the findings on the EGD and colonoscopy will decide of reversal of INR. If patient does not respond appropriately to 2 units of CBC or continues to ooze from the fascial scar we will give him 1 unit of FFP. Check lactate, INR, CBC after 2 units of PRBC Hypertension: Blood pressure stable for now. Goal blood pressure 140/90 mmHg. History of CAD/PAD: For now we will hold off on aspirin and Plavix because of acute anemia. We will have to hold off on statin because of acute liver dysfunction. Patient states she has not had his medication for over a month. For now patient is chest pain-free and pulses bilateral lower lobes are dopplerable. Check echocardiogram to look for EF. Check periodic lower limb Dopplers. Full code. No anticoagulation because of acute anemia. Protonix N.p.o. Admit to ICU. Attestations Medical Necessity Statement*: More than 2 midnights for acute anemia, acute liver disease Time Spent in Patient Care: Greater than 35 minutes (>than 50% of time spent in counselling and/or direct pt care on unit) . 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
--- NOTE | 2019-12-11 16:24 | CTR_ITS ---
PROCEDURE INFORMATION: Exam: CT Abdomen And Pelvis With Contrast Exam date and time: 12/11/2019 4:49 PM Age: 59 years old Clinical indication: Patient HX: Liver disease w cirrhosis, C/O diarrhea x 2-3 weeks; Additional info: Abnormal liver enzymes TECHNIQUE: Imaging protocol: Computed tomography of the abdomen and pelvis with intravenous contrast. Radiation optimization: All CT scans at this facility use at least one of these dose optimization techniques: automated exposure control; mA and/or kV adjustment per patient size (includes targeted exams where dose is matched to clinical indication); or iterative reconstruction. Contrast material: VISI 320; Contrast volume: 95 ml; Contrast route: INTRAVENOUS (IV); COMPARISON: US abdomen complete* [id number] 10/18/2019 8:48 AM RADIATION DOSE METRICS: Total DLP (mGy-cm): 656.67 FINDINGS: Lungs: Mild atelectasis in the right lower lobe. Liver: Cirrhotic liver. Gallbladder and bile ducts: The gallbladder is mildly distended with small calcified stones. Mild intrahepatic and extrahepatic ductal dilatation. Pancreas: Dilatation of the main pancreatic duct measuring up to 9 mm. No focal lesion identified in the pancreas. Spleen: The spleen is normal in size with a calcified granuloma. Adrenals: Normal. No mass. Kidneys and ureters: Normal. No hydronephrosis. Stomach and bowel: Unremarkable. No obstruction. No mucosal thickening. Appendix: No evidence of appendicitis. Intraperitoneal space: Unremarkable. No free air. No significant fluid collection. Vasculature: Portal venous hypertension with recanalized umbilical vein with periumbilical and gastroesophageal varices. Lymph nodes: Unremarkable. No enlarged lymph nodes. Bladder: Unremarkable as visualized. Reproductive: Unremarkable as visualized. Bones/joints: Unremarkable. No acute fracture. Soft tissues: Unremarkable. CT/CT abdomen pelvis w con* [id number] IMPRESSION: 1. Mild dilatation of the bile ducts and moderate dilatation of the main pancreatic duct to the pancreatic head. An obstructing lesion in the pancreatic head or intraductal stones cannot be excluded. Follow-up with MRI is recommended. 2. Cirrhotic liver. 3. Mild ascites. 4. Portal venous hypertension with gastroesophageal varices. 5. Cholelithiasis. Radiation Dose CTDIVOL = (mGy): DLP = 656.67 (mGy-cm)
[2019-12-11] MEDS: iodixanol 320 mg/mL 100mL Btl IV (17:03)
[2019-12-11] MEDS: folic acid 1 MG, multivitamin inj 10 ML, thiamine 100 MG in sodium chloride 0.9% 1,000 ML 252.8 MG IV (17:47)
[2019-12-11] MEDS: gabapentin 300 mg Capsule PO ×2 (17:51→21:11)
--- NOTE | 2019-12-11 18:07 | PC.NURSE ---
pedal pulses Patient has bilatteral faint pulses (L>R) per bedside doppler by this nurse.
--- NOTE | 2019-12-11 18:53 | PC.NURSE ---
RBCs 2nd 2nd unit of RBCs started 1844. FFP infused.
[2019-12-11 22:18] LABS: Basophils # 0.1 10^3/uL (0.0-0.1); Basophils % 0.7 %; Eosinophils # 0.1 10^3/uL (0.0-0.8); Eosinophils % 1.9 %; Hematocrit 22.2 % (42.0-52.0); Hemoglobin 7.1 g/dL (11.7-16.6); Lymphocytes # 1.9 10^3/uL (0.8-4.8); Lymphocytes % 27.3 %; Mean Corpuscular Hemoglobin 34.5 pg (28.0-34.0); Mean Corpuscular Volume 107.8 fL (80-94); Mean Platelet Volume 9.8 fL (7.4-10.4); Monocytes % 13.9 %; Neutrophils # 3.8 10^3/uL (1.8-7.7); Neutrophils % 55.9 %; Nucleated Red Blood Cells % 0 %; Platelet Count 96 10^3/cmm (130-400); Red Blood Count 2.06 10^6/uL (4.1-5.3); Red Cell Distribution Width 22.5 % (12.1-15.1); White Blood Count 6.8 10^3/uL (4.0-10.0)
[2019-12-11 22:25] LABS: Lactate Dehydrogenase 269 U/L (135-225); Lactic Sepsis W/Reflex 1.4 mmol/L (0.5-2.2); Total Bilirubin 6.8 mg/dL (0.15-1.2)
[2019-12-12] VITALS (15 sets, daily range): BP systolic 81–120; BP diastolic 54–72; PULSE 75–85; RESP 13–24; TEMP 36.7–37.1; O2SAT 94–100
[2019-12-12] MEDS: pantoprazole 40 mg SDV IVP (00:23)
[2019-12-12] MEDS: sodium chloride 0.9% (100 ml) 100 ML 50 ML (00:24)
[2019-12-12] MEDS: dextrose 5%-sod chloride 0.9% 1,000 ML 75 ML IV ×2 (00:33→18:44)
[2019-12-12 02:02] LABS: Gamma Glutamyl Transferase 56 U/L (8-61)
[2019-12-12 03:56] LABS: Vitamin B12 1977 pg/mL (232-1245)
[2019-12-12 04:02] LABS: HIV 1 & 2 Antibody Non-Reactive (Non-Reactiv); HIV 1 & 2 Antigen Non-Reactive (Non-Reactiv)
[2019-12-12 04:03] LABS: Folate Level > 20.0 ng/mL (4.5-32.2)
[2019-12-12] MEDS: piperacillin-tazobactam 3.375 GM in sodium chloride 0.9% (plus) 50 ML IV ×3 (05:22→20:35)
[2019-12-12 05:51] LABS: Basophils # 0.1 10^3/uL (0.0-0.1); Basophils % 1.2 %; Eosinophils # 0.1 10^3/uL (0.0-0.8); Hematocrit 25.2 % (42.0-52.0); Lymphocytes # 1.9 10^3/uL (0.8-4.8); Lymphocytes % 28.8 %; Mean Corpuscular HGB Conc 31.7 g/dL (30.0-36.0); Mean Corpuscular Hemoglobin 33.1 pg (28.0-34.0); Mean Corpuscular Volume 104.1 fL (80-94); Mean Platelet Volume 10.1 fL (7.4-10.4); Monocytes # 0.8 10^3/uL (0.2-0.9); Monocytes % 12.8 %; Neutrophils # 3.5 10^3/uL (1.8-7.7); Neutrophils % 54.9 %; Nucleated Red Blood Cells % 0 %; Platelet Count 88 10^3/cmm (130-400); Red Blood Count 2.42 10^6/uL (4.1-5.3); Red Cell Distribution Width 22.5 % (12.1-15.1); White Blood Count 6.4 10^3/uL (4.0-10.0)
[2019-12-12 06:35] LABS: Alanine Aminotransferase 49 U/L (0-41); Albumin Level 2.6 g/dL (3.5-5.2); Alkaline Phosphatase 132 IU/L (40-130); Anion Gap 12.2 (5-19); Aspartate Amino Transferase 146 U/L (0-40); Blood Urea Nitrogen 12 mg/dL (6-20); Calcium 8.5 mg/dL (8.5-10.5); Carbon Dioxide 19 mmol/L (22-29); Chloride 107 mmol/L (98-107); Creatinine Clr Calc Pharmacy 91.9736; Globulin 3.5 g/dL (1.3-4.6); Glomerular Filtration Rate 86.7 mL/min (90-130); Glucose 90 mg/dL (65-115); Osmolality Calculated 276 mOsm/kg (285-295); Potassium 3.2 mmol/L (3.5-5.1); Sodium 135 mmol/L (136-145); Total Protein 6.1 g/dL (6.6-8.7)
[2019-12-12 06:44] LABS: INR 2.81 (0.8-1.2)
--- NOTE | 2019-12-12 07:00 | USCV_ITS ---
Srikanth Reynoso Age: 59 Gender: M : 1960 Exam Date: 12/12/2019 06:02 Ordering Phys: Pancho Navarro MD Technologist: Mary Swanson Exam Location: [facility] [place] Indication: dvt HISTORY: DVT. PROCEDURES: Venous duplex imaging was performed in bilateral lower extremities. The following venous structures were evaluated: common femoral vein, profunda vein, proximal portion of the greater saphenous vein, superficial femoral vein, and the popliteal vein. In addition, the posterior tibial and peroneal trunk were evaluated. Serial compression, augmentation maneuvers, and spectral Doppler flow evaluation were performed. FINDINGS: Normal 2-D Doppler and augmentation and compressibility throughout the lower extremity venous structures. Additional imaging through the proximal calf veins also reveals no thrombus. Limited evaluation of the greater saphenous vein is patent with no thrombus. CONCLUSIONS No DVT bilateral lower extremities. Dr. Christelle Powell DO (Electronically Signed) Final Date: 12 December 2019 09:16 S
[2019-12-12 07:11] LABS: Total Bilirubin 7.5 mg/dL (0.15-1.2)
--- NOTE | 2019-12-12 09:46 | PM.PN ---
Subjective Subjective: Interval history: Overnight patient received 1 more unit of PRBC. He denies of having any nausea, vomiting, hematemesis. He continues to bleed from his biopsy wound on the cheek. Denies of having any headache, itching. Vitals/I&O/Wt Last Vital Signs Temp 98.0 F 12/12/19 01:51 Pulse 79 12/12/19 04:00 Resp 24 H 12/12/19 04:00 BP 90/54 12/12/19 04:00 Pulse Ox 96 12/12/19 04:00 12/11/19 12/12/19 12/12/19 22:59 06:59 14:59 Intake Total 1024.65 / 1024.65 1815 / 2839.65 Output Total 300 / 300 Balance 724.65 / 724.65 1815 / 2539.65 Weight last 48 hrs Weight 82.554 kg Weight 81.221 kg Weight 81.647 kg Physical Exam Narrative: EXAM NARRATIVE: General: No acute distress, AO x3, pale, icteric HEENT: PERRLA, pupils bilaterally equal and reactive, dried a bloody scar present on the left ear, raccoon eyes present, covered bandage present on the right cheek, soaked mildly with blood Chest: Normal vesicular breath sounds, no added sounds, equal good air entry bilaterally CVS: S1-S2 regular, no murmurs, no tachycardia, no gallops, no rubs Abdomen: Soft, tender in right upper quadrant, soft hepatomegaly , bowel sounds present Neuro: No focal deficits, no facial deformity, AO x3, power 5/5 in all limbs Data : 12/12/19 05:08 12/12/19 05:08 A&P Assessment and plan (1) Anemia: Status: Acute Qualifiers: Anemia type: unspecified type Qualified Code(s): D64.9 - Anemia, unspecified (2) Supratherapeutic INR: Status: Acute (3) Atrial fibrillation: Status: Acute Qualifiers: Atrial fibrillation type: unspecified Qualified Code(s): I48.91 - Unspecified atrial fibrillation (4) Alcoholic liver disease: Status: Acute (5) Liver cirrhosis: Status: Acute (6) Alcoholism in recovery: Status: Acute (7) Squamous cell carcinoma: Status: Acute (8) Hypertension: Status: Acute Qualifiers: Hypertension type: essential hypertension Qualified Code(s): I10 - Essential (primary) hypertension (9) Hyperlipidemia: Status: Acute Qualifiers: Hyperlipidemia type: mixed hyperlipidemia Qualified Code(s): E78.2 - Mixed hyperlipidemia (10) PAD (peripheral artery disease): Status: Acute Additional A&P Information 53-year-old gentleman past medical history of acute liver disease, liver cirrhosis, recent diagnosis squamous cell carcinoma who was due for an EGD colonoscopy presented today with development of atrial fibrillation. He was found to be acutely anemic. Acute anemia: EGD and colonoscopy done yesterday negative for any variceal bleed. Acute anemia most likely because of blood loss from the biopsy wound. Will do pressure dressing. Patient has overall received 3 units of PRBC. Continue with Protonix 40 mg oral twice daily. HIV, hepatitis panel, vitamin B12, folate levels appreciated. As patient continues to have small oozing and INR has improved to 2.8 after 1 unit of FFP yesterday will give oral vitamin K 5 mg. Check CBC and INR again in evening around [address] abdomen concerning for possible pancreatic mass causing moderate dilation of pancreatic duct. Given this patient most likely needs an ERCP and pancreatic head mass biopsy. [place] [facility] [place] [facility] have to be transferred [facility] to [facility] or [facility]. I discussed all of this with the patient and he states he will not be able to take the bill for the ambulance and would want to go to the hospital himself. He states his sister can [place] [facility] [place]. I spoke to his sister Ms. Henriquez and she is agreeable to the same as well. For now continue holding aspirin and Plavix. Continue holding statin as well. Oral folic acid, thiamine. Continue with GI soft diet. Acute liver disease/liver cirrhosis: Child-SALAZAR score-11 MELD score-Na score- 27 Continue with D5 NS at 50 cc/h. Continue with Zosyn for now. Supratherapeutic INR: INR 2.8 post 1 unit FFP. Oral Vit K Hypertension: Blood pressure stable for now. Goal blood pressure 140/90 mmHg. Given his history of alcoholic liver disease patient would benefit from propranolol. Blood pressures normal for now. History of CAD/PAD: For now we will hold off on aspirin and Plavix because of acute anemia. We will have to hold off on statin because of acute liver dysfunction. Patient states she has not had his medication for over a month. Continue checking lower limb Dopplers for peripheral pulses. Gabapentin 3 mg 4 times daily. Full code. No anticoagulation because of acute anemia. Protonix GI soft We will monitor patient's hemoglobin for 1 more day after giving him vitamin K. Patient is stable to be transferred from the ICU to floors. Patient if remains stable can most likely be discharged tomorrow for follow-up with order planner in [place]. Both patient and patient's sister most Galvez are agreeable to the plan. They both verbalized understanding. Attestations Medical Necessity Statement*: Acute blood loss anemia, acute liver disease Time Spent in Patient Care: Greater than 35 minutes (>than 50% of time spent in counselling and/or direct pt care on unit). 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
[2019-12-12] MEDS: potassium chloride ER 10 mEq Tablet 40 MEQ PO ×2 (10:43→18:45)
[2019-12-12] MEDS: thiamine 100 mg Tablet PO (10:43)
[2019-12-12] MEDS: folic acid 1 mg Tablet PO (10:43)
[2019-12-12] MEDS: gabapentin 300 mg Capsule PO ×4 (10:44→20:32)
[2019-12-12] MEDS: phytonadione (ADULT) 10 mg/mL Ampule 1 mL 5 MG PO (10:44)
[2019-12-12 15:44] LABS: Hematocrit 24.7 % (42.0-52.0); Hemoglobin 8.1 g/dL (11.7-16.6)
[2019-12-12 17:29] LABS: INR 2.74 (0.8-1.2)
--- NOTE | 2019-12-12 18:00 | PC.NURSE ---
REPORT FAXED & CALLED TO FRANCO JOHNSON. PT TRANSFERRED SELF TO WHEELCHAIR ALONG WITH PERSONAL BELONGINGS (CLOTHING, PHONE, CANE) DRESSING CHANGE TO RIGHT CHEEK DONE WITH M/S NURSE. PRESSURE DRESSING APPLIED, PT TOLERATED WELL. WISHED WELL
[2019-12-12] MEDS: pantoprazole DR 40 mg Tablet PO (18:45)
[2019-12-13] VITALS: BP 109/69; PULSE 81; RESP 24; TEMP 36.7; O2SAT 91
[2019-12-13 04:00] VITALS: BP 97/59; PULSE 79; RESP 20; TEMP 36.8; O2SAT 92
[2019-12-13 05:28] LABS: Basophils # 0.1 10^3/uL (0.0-0.1); Basophils % 1.6 %; Eosinophils # 0.2 10^3/uL (0.0-0.8); Eosinophils % 2.6 %; Hematocrit 24.7 % (42.0-52.0); Hemoglobin 7.9 g/dL (11.7-16.6); Lymphocytes # 2.1 10^3/uL (0.8-4.8); Lymphocytes % 30.8 %; Mean Corpuscular Hemoglobin 33.6 pg (28.0-34.0); Mean Corpuscular Volume 105.1 fL (80-94); Mean Platelet Volume 10.1 fL (7.4-10.4); Monocytes % 13.8 %; Neutrophils # 3.5 10^3/uL (1.8-7.7); Neutrophils % 50.8 %; Nucleated Red Blood Cells % 0 %; Platelet Count 91 10^3/cmm (130-400); Red Blood Count 2.35 10^6/uL (4.1-5.3); Red Cell Distribution Width 23.7 % (12.1-15.1); White Blood Count 6.9 10^3/uL (4.0-10.0)
[2019-12-13] MEDS: piperacillin-tazobactam 3.375 GM in sodium chloride 0.9% (plus) 50 ML IV (05:32)
[2019-12-13] MEDS: dextrose 5%-sod chloride 0.9% 1,000 ML 75 ML IV (05:33)
[2019-12-13 05:51] LABS: Alanine Aminotransferase 55 U/L (0-41); Albumin Level 2.5 g/dL (3.5-5.2); Alkaline Phosphatase 144 IU/L (40-130); Anion Gap 11.4 (5-19); Aspartate Amino Transferase 137 U/L (0-40); Blood Urea Nitrogen 14 mg/dL (6-20); Calcium 8.5 mg/dL (8.5-10.5); Carbon Dioxide 18 mmol/L (22-29); Chloride 108 mmol/L (98-107); Globulin 3.8 g/dL (1.3-4.6); Glomerular Filtration Rate 62.2 mL/min (90-130); Glucose 130 mg/dL (65-115); Osmolality Calculated 276 mOsm/kg (285-295); Potassium 3.4 mmol/L (3.5-5.1); Sodium 134 mmol/L (136-145); Total Bilirubin 6.9 mg/dL (0.15-1.2); Total Protein 6.3 g/dL (6.6-8.7)
[2019-12-13 07:27] VITALS: BP 92/58; PULSE 77; RESP 20; TEMP 36.8; O2SAT 90
[2019-12-13] MEDS: folic acid 1 mg Tablet PO (08:36)
[2019-12-13] MEDS: pantoprazole DR 40 mg Tablet PO (08:36)
[2019-12-13] MEDS: gabapentin 300 mg Capsule PO (08:36)
[2019-12-13] MEDS: thiamine 100 mg Tablet PO (08:36)
--- NOTE | 2019-12-13 11:09 | PM.DCS ---
Discharge Providers Date of Admission: 12/11/19 12:22 Date of Discharge: December 13, 2019 Attending Provider at Admission: Pancho Navarro MD Attending Provider at Discharge: Pancho Navarro MD Consults: Dr. Michelle Primary Care Provider: Estrella Pendleton MD Diagnoses at Discharge Discharge Diagnosis (1) Anemia: Status: Acute Qualifiers: Anemia type: unspecified type Qualified Code(s): D64.9 - Anemia, unspecified (2) Supratherapeutic INR: Status: Acute (3) Atrial fibrillation: Status: Acute Qualifiers: Atrial fibrillation type: unspecified Qualified Code(s): I48.91 - Unspecified atrial fibrillation (4) Alcoholic liver disease: Status: Acute (5) Liver cirrhosis: Status: Acute (6) Alcoholism in recovery: Status: Acute (7) Squamous cell carcinoma: Status: Acute (8) Hypertension: Status: Acute Qualifiers: Hypertension type: essential hypertension Qualified Code(s): I10 - Essential (primary) hypertension (9) Hyperlipidemia: Status: Acute Qualifiers: Hyperlipidemia type: mixed hyperlipidemia Qualified Code(s): E78.2 - Mixed hyperlipidemia (10) PAD (peripheral artery disease): Status: Acute Reason for Visit Reason for Visit: HYPOTENSION, INCREASED HEARTRATE Hospital Course Discharge Summary: Srikanth Reynoso is a 59 year old male with PMH of CAD, Severe PAD, liver cirrhosis, alcoholic liver disease, alcoholism in recovery, status post multiple intervention and past including balloon angioplasty and stent placement to common iliac and right SFA last in March 2019, squamous cell carcinoma with recent resection of tumor from the left ear 20 days ago and biopsy done on the right cheek around 4 days ago by children librarian in [place] who presented to the ER today from the GI Lab where he had gone for EGD and colonoscopy with Dr. iMchelle because of abdominal pain and worsening liver numbers. While in the GI lab patient developed atrial fibrillation with hypotension so was transferred to the ER. While being transferred to the ER patient converted back to normal sinus rhythm. While in ER his heart rate was 98 bpm, normal sinus rhythm, blood pressure of 130/80 mmHg, saturating 94% on room air. While in the ER blood work showed a hemoglobin of 6.2, white count of 13.7, platelet of 149, INR of 3.19, potassium of 3.2, creatinine of 1.2, sodium of 137, lactate of 3.5, bilirubin of 7.2, AST of 96 ALT of 58, alkaline phosphatase of 179, lipase of 778. Patient himself denies of any nausea, vomiting, dizziness but does complain of shortness of breath on exertion for last 1 to 2 weeks along with feeling weak. He states he has been having episodes of diarrhea which are light and colored for last 2 to 3 weeks. He denies of having any night sweats, loss of weight. He denies of having any fevers, flulike symptoms, runny nose, cough. He does complain of claudication, paresthesia in his both legs but states that is been chronic. He was admitted to the ICU and transfused 2 units of PRBC. He was seen by Dr. Michelle underwent EGD and colonoscopy which was reported normal. It is most likely that patient has been having acute blood loss anemia from bleeding from the biopsy scar from his right cheek. He had supratherapeutic INR on admission she was treated by an oral vitamin K. His right cheek scar was dressed with pressure. Overall patient required 3 units of PRBC and 150 while hospitalized. His hemoglobin has remained stable. He underwent CT abdomen which showed moderately dilated pancreatic duct with a possible mass on pancreas head. Patient requires further work-up for pancreatic head mass and possible ERCP. Unfortunately ERCP is not done at [facility] so a transfer to higher center was sought. Patient requested to be discharged rather than transferred for that he can catch her right with his sister to drive down to [place]. The treatment plan was discussed with both with patient and his sister Ms Park and they both verbalized understanding and agreed. He is been discharged in hemodynamically stable condition with advised to not take aspirin Plavix and statin for now given high risk of bleeding and liver failure. Physical Exam Narrative: EXAM NARRATIVE: General: No acute distress, AO x3, pale, icteric HEENT: PERRLA, pupils bilaterally equal and reactive, dried a bloody scar present on the left ear, raccoon eyes present, covered bandage present on the right cheek, soaked mildly with blood Chest: Normal vesicular breath sounds, no added sounds, equal good air entry bilaterally CVS: S1-S2 regular, no murmurs, no tachycardia, no gallops, no rubs Abdomen: Soft, tender in right upper quadrant, soft hepatomegaly , bowel sounds present Neuro: No focal deficits, no facial deformity, AO x3, power 5/5 in all limbs Discharge Data Data Completed and Pending: Completed Studies During Hospitalization Category Date Time Status CT abdomen pelvis w con* [id number] Rout ine Cat Scan 12/11/19 16:[address] facial bones w o con* [id number] Routi ne Cat Scan 12/11/19 15:21 Completed XR chest 1V gianna ble [id number] Urgent Exams 12/11/19 11:11 [place] [id number] Routin e Ultrasound 12/12/19 07:00 Completed Pending at discharge Category Date Time Status ABO/Rh Type Stat Lab 12/11/19 11:30 Results Complete Crossmat ch Stat Lab 12/11/19 11:30 Results Frozem Plasma FZ <24 1st Cont Stat Lab 12/11/19 11:30 Results Leukocyte Reduced RBC Stat Lab 12/11/19 11:30 Results Type and Screen S tat Lab 12/11/19 11:30 Results Labs from last 24 hours 12/13/19 12/13/19 12/12/19 04:15 04:15 16:59 WBC 6.9 RBC 2.35 L Hgb 7.9 L Hct 24.7 L MCV 105.1 H MCH 33.6 MCHC 32.0 RDW 23.7 H Plt Count 91 L MPV 10.1 Neut % (Auto) 50.8 Lymph % (Auto) 30.8 [place] % (Auto) 13.8 Eos % (Auto) 2.6 Baso % (Auto) 1.6 Neut # (Auto) 3.5 Lymph # (Auto) 2.1 [place] # (Auto) 1.0 H Eos # (Auto) 0.2 Baso # (Auto) 0.1 Nucleated RBC % (a uto) 0 Nucleated RBCs # 0.0 PT 30.10 H INR 2.74 H Sodium 134 L Potassium 3.4 L Chloride 108 H Carbon Dioxide 18 L Anion Gap 11.4 BUN 14 Creatinine 1.2 GFR Calculation 62.2 L Glucose 130 H Calculated Osmolal ity 276 L Calcium 8.5 Total Bilirubin 6.9 H AST 137 H ALT 55 H Alkaline Phosphata se 144 H Total Protein 6.3 L Albumin 2.5 L Globulin 3.8 12/12/19 15:30 WBC RBC Hgb 8.1 L Hct 24.7 L MCV MCH MCHC RDW Plt Count MPV Neut % (Auto) Lymph % (Auto) [place] % (Auto) Eos % (Auto) Baso % (Auto) Neut # (Auto) Lymph # (Auto) [place] # (Auto) Eos # (Auto) Baso # (Auto) Nucleated RBC % (a uto) Nucleated RBCs # PT INR Sodium Potassium Chloride Carbon Dioxide Anion Gap BUN Creatinine GFR Calculation Glucose Calculated Osmolal ity Calcium Total Bilirubin AST ALT Alkaline Phosphata se Total Protein Albumin Globulin Addt'l Data from Hospital Stay: CT abdomen Pelvis [facility] [address] [place] [address] CT Scan Report Signed Patient: Srikanth Reynoso #: [id number] : 2Acct#:[id number] Age/Sex: 59 / MADM Date: 12/11/19 Loc: ICURoom/Bed: [place] [address]: Pancho Navarro MD Ordering Provider/Ordering MD: Pancho Navarro MD Date of Service: 12/11/19 Procedure(s): CT abdomen pelvis w con* [id number] Accession Number(s): [id number] Report Number: [id number] PROCEDURE INFORMATION: Exam: CT Abdomen And Pelvis With Contrast Exam date and time: 12/11/2019 4:49 PM Age: 59 years old Clinical indication: Patient HX: Liver disease w cirrhosis, C/O diarrhea x 2-3 weeks; Additional info: Abnormal liver enzymes TECHNIQUE: Imaging protocol: Computed tomography of the abdomen and pelvis with intravenous contrast. Radiation optimization: All CT scans at this facility use at least one of these dose optimization techniques: automated exposure control; mA and/or kV adjustment per patient size (includes targeted exams where dose is matched to clinical indication); or iterative reconstruction. Contrast material: VISI 320; Contrast volume: 95 ml; Contrast route: INTRAVENOUS (IV); COMPARISON: US abdomen complete* [id number] 10/18/2019 8:48 AM RADIATION DOSE METRICS: Total DLP (mGy-cm): 656.67 FINDINGS: Lungs: Mild atelectasis in the right lower lobe. Liver: Cirrhotic liver. Gallbladder and bile ducts: The gallbladder is mildly distended with small calcified stones. Mild intrahepatic and extrahepatic ductal dilatation. Pancreas: Dilatation of the main pancreatic duct measuring up to 9 mm. No focal lesion identified in the pancreas. Spleen: The spleen is normal in size with a calcified granuloma. Adrenals: Normal. No mass. Kidneys and ureters: Normal. No hydronephrosis. Stomach and bowel: Unremarkable. No obstruction. No mucosal thickening. Appendix: No evidence of appendicitis. Intraperitoneal space: Unremarkable. No free air. No significant fluid collection. Vasculature: Portal venous hypertension with recanalized umbilical vein with periumbilical and gastroesophageal varices. Lymph nodes: Unremarkable. No enlarged lymph nodes. Bladder: Unremarkable as visualized. Reproductive: Unremarkable as visualized. Bones/joints: Unremarkable. No acute fracture. Soft tissues: Unremarkable. CT/CT abdomen pelvis w con* [id number] IMPRESSION: 1. Mild dilatation of the bile ducts and moderate dilatation of the main pancreatic duct to the pancreatic head. An obstructing lesion in the pancreatic head or intraductal stones cannot be excluded. Follow-up with MRI is recommended. 2. Cirrhotic liver. 3. Mild ascites. 4. Portal venous hypertension with gastroesophageal varices. 5. Cholelithiasis. Radiation Dose CTDIVOL = (mGy): DLP = 656.67 (mGy-cm) Dictated By:Kenneth Dinh Signed By:Kenneth DinhSigned Date/Time:12/11/19 1728 Vitals: Last Vital Signs Temp 98.3 F 12/13/19 07:27 Pulse 77 12/13/19 07:27 Resp 20 H 12/13/19 07:27 BP 92/58 12/13/19 07:27 Pulse Ox 90 12/13/19 07:27 Discharge Plan Discharge Patient Disposition: Home, Self-Care Condition: Stable Prescriptions: New folic acid 1 mg Tablet 1 mg PO DAILY Qty: 30 RF: 0 thiamine mononitrate (vit B1) [Vitamin B-1 (mononitrate)] 100 mg Tablet 100 mg PO DAILY Qty: 30 RF: 0 Continued furosemide 20 mg tablet 20 mg PO DAILY Qty: 30 RF: 0 atorvastatin 40 mg Tablet 40 mg PO DAILY RF: 0 Plavix 75 mg Tablet 75 mg PO DAILY RF: 0 cephalexin 500 mg Tablet 500 mg PO TID RF: 0 potassium chloride 20 mEq tablet extended release 20 meq PO DAILY Qty: 14 RF: 0 gabapentin 300 mg capsule 300 mg PO QID RF: 0 Discharge Orders: Discharge Order (Routine); Ordered 12/13/19 Ordered By: Pancho Navarro Referrals: Estrella Pendleton MD [Primary Care Provider] - 2 weeks Discharge Diet: GI Soft Discharge Activity: Resume usual activity Activity Restrictions/Additional Instructions: As discussed upon discharge please go to [facility] for further work-up and treatment of obstructive bilirubinemia and possible ERCP. The only reason why not transferring you from hospital to hospital is as per your request. Continue to hold aspirin Plavix because of increased risk of bleeding. Discharge Attestations Time Spent in Discharge Care*: greater than 30 min Specific Discharge Activities: Specific discharge activities: educating patient, educating and/or supporting family/caregiver, discussing with pcp/other providers, discussing with nurse case management/social workers/dc planners, documenting/other paperwork and evaluating patient/reviewing data Status at Discharge: Cognitive status at discharge: cognitively intact, Behavioral status at discharge: cooperative, Functional status at discharge: independent ambulation Overall status at discharge: patient is progressing back to baseline Quality Metrics Clinical Quality Measures During this hospital stay, did patient experience: None Coding Level of Care Code Acute Pulp Grinder for Chg Fwd Diagnoses Anemia D64.9 Anemia type: unspecified type Supratherapeutic INR R79.1 Atrial fibrillation I48.91 Atrial fibrillation type: unspecified Alcoholic liver disease K70.9 Liver cirrhosis K74.60 Alcoholism in recovery F10.21 Squamous cell carcinoma Hypertension I10 Hypertension type: essential hypertension Hyperlipidemia E78.2 Hyperlipidemia type: mixed hyperlipidemia PAD (peripheral artery disease) I73.9
[2019-12-13 11:32] VITALS: BP 92/58; PULSE 77; RESP 20; TEMP 36.8; O2SAT 90
[2019-12-13 12:00] VITALS: BP 91/51; PULSE 80; RESP 20; TEMP 36.7; O2SAT 94
--- NOTE | 2019-12-13 12:23 | PC.NURSE ---
DISCHARGE INSTRUCTIONS GIVEN TO PATIENT AND VOICED UNDERSTANDING. IV'S REMOVED BY NURSING STUDENTS. K[place], MARKETING COMMUNICATIONS COORDINATOR
[2019-12-13 13:01] VITALS: BP 91/51; PULSE 80; RESP 20; TEMP 36.7; O2SAT 94
== END 2019-12-13 13:01 | disposition home or self-care (01) | DRG 433 ==
LOC: ER 12:42 → ICU 12:47 → MEDSURG 12-12 17:43
PROVIDERS: Emergency Medicine; Internal Medicine; Admitting Provider Student in an Organized Health Care Education/Training Program; PCP Family Medicine; Visit Provider Student in an Organized Health Care Education/Training Program
PROC: 0DJD8ZZ Inspection of Lower Intestinal Tract, Via Natural or Artificial Opening Endoscopic (ICD-10-PCS; CPT 45378; principal; 2019-12-11 14:00)
PROC: 0DJ08ZZ Inspection of Upper Intestinal Tract, Via Natural or Artificial Opening Endoscopic (ICD-10-PCS; CPT 43235; 2019-12-11 14:00)
DX: K74.60 Unspecified cirrhosis of liver (principal); D62 Acute posthemorrhagic anemia; K70.9 Alcoholic liver disease, unspecified; C44.92 Squamous cell carcinoma of skin, unspecified; I73.9 Peripheral vascular disease, unspecified; E78.2 Mixed hyperlipidemia; I10 Essential (primary) hypertension; F10.21 Alcohol dependence, in remission; I48.91 Unspecified atrial fibrillation; I25.10 Atherosclerotic heart disease of native coronary artery without angina pectoris; Z95.5 Presence of coronary angioplasty implant and graft; I95.9 Hypotension, unspecified; Z79.02 Long term (current) use of antithrombotics/antiplatelets; K21.9 Gastro-esophageal reflux disease without esophagitis; F17.210 Nicotine dependence, cigarettes, uncomplicated
CPT/HCPCS: 12345; 36415; 36430; 43235; 45378; 51798; 70486; 71045; 74177; 80053; 80307; 82247; 82248; 82607; 82746; 82977; 83540; 83550; 83605; 83615; 83690; 83880; 84145; 84443; 85014; 85018; 85025; 85610; 86850; 86900; 86920; 86927; 87806; 93005; 93970; 94664; 96375; 99283; C9113; J2543; J3411; J3430; J3490; J7030; P9016; P9017; Q9967

== ENCOUNTER 2020-05-01 00:34 | Emergency (ER) | payer OTHER, MEDICAID, SELFPAY ==
[2020-05-01] VITALS (28 sets, daily range): BP systolic 91–139; BP diastolic 52–87; PULSE 88–106; RESP 12–22; TEMP 36.6–37.6; O2SAT 92–98; BMI 24.3
--- NOTE | 2020-05-01 00:41 | W.ED.GENADLT ---
HPI - General Adult General: Chief complaint: General Medical Stated complaint: RASH ON ABD Time Seen by Provider: 05/01/20 00:39 Source: patient and EMS Mode of arrival: EMS Limitations: no limitations History of Present Illness: HPI narrative: Srikanth is a nice 51-year-old male who comes in with the complaint of a rash to his abdomen. Srikanth is on hospice for pancreatic cancer and liver disease. Dr. Pendleton is his physician. They noticed a rash to his abdomen earlier today and that it was spreading as the day went on. There is been no report of trauma, fever, chills, vomiting, increased abdominal pain or other complaint. Srikanth states he just wanted to come in to get this checked out as his family was concerned. There was report that the patient's blood counts were low and he may need a blood transfusion. Srikanth states he is not opposed to this but ultimately he wants to go back home and stay on hospice as that is been the plan from the beginning. He denies any other complaints or concerns at this time. Associated symptoms: Reports rash; Deny chest pain, confusion, diaphoresis, dyspnea, headache(s), malaise, nausea, palpitations, syncope or vomiting Review of Systems Const: Denies: fever(s), chills, body aches, fatigue, malaise or diaphoresis Eyes: Denies: change in vision, blurry vision, photophobia, eye discomfort, eye discharge, eye redness or yellow eyes ENMT: Denies: throat pain, odynophagia, hoarseness, swelling of lips/tongue, ear or mastoid pain, ear discharge, change in hearing or nasal discharge Card: Denies: chest pain, palpitations, irregular heart rhythm, edema, lightheadedness, syncope, pre-syncope, dyspnea on exertion or orthopnea Resp: Denies: dyspnea, productive cough, non-productive cough, wheezing, hemoptysis or chest congestion GI: Denies: abdominal pain, nausea, vomiting, hematemesis, coffee ground emesis, heartburn, diarrhea, constipation, GI cramping, hematochezia or melena : Denies: flank pain, dysuria, urinary frequency, urinary urgency or hematuria Musc: Denies: neck pain, back pain, extremity pain, extremity swelling, joint pain, joint swelling, joint redness, joint warmth or joint stiffness Skin/Breast: Reports: rash; Denies: pruritus, erythema, skin pain or skin tenderness Neuro: Denies: headache(s), numbness in extremities, weakness in extremities, sensory changes, lack of coordination, difficulty walking, dizziness, vertigo, confusion, Slurred speech present or seizure-like activity Mirza/Lymph: Reports: easy bruising and easy bleeding All/Imm: Denies: urticaria, throat swelling, tongue swelling, facial swelling or acute wheezing PFSH ED PFSH: Medical History (Updated 05/01/20 @ 02:01 by Joanne Penn) Alcoholic liver disease Chronic congestive heart failure Coronary artery disease without angina pectoris Gastroesophageal reflux disease Hyperlipidemia Hypertension Insomnia Liver cirrhosis Liver disease Neuropathy PAD (peripheral artery disease) Postprandial abdominal pain in right upper quadrant S/P angiogram of extremity Surgical History H/O vasectomy History of colonoscopy with polypectomy History of coronary angioplasty with insertion of stent Family History Denies family history of Anesthesia complication Bleeding disorder Social History Smoking and tobacco status: current every day smoker cigarettes Packs smoked per day: 1 Quit status (tobacco): not considering quitting Alcohol intake: former Former alcohol use details: Quit November 05. Desire information about alcohol rehabilitation?: No Desire information about substance/drug rehabilitation?: No Current gender identity: Male Physical Exam Const: COMMON NORMALS: no acute distress, patient oriented x3, no limitations and alert GENERAL APPEARANCE: cooperative HENMT: COMMON NORMALS: normocephalic, atraumatic, external ears normal, EAC's normal and Normal external nose present HEAD & SCALP: normal to inspection, normocephalic and atraumatic FACE & SINUS: normal facial exam and face symmetric NOSE: Normal external nose present and Normal nares present EXTERNAL EAR: Yes external ears normal EXTERNAL AUDITORY CANAL: EAC's normal MOUTH: Normal oral and palatal mucosa present, lip normal and tongue normal Eye: COMMON NORMALS: Equal, round and reactive pupils present and conjunctivae normal GENERAL EYE: appearance normal, both eyes and all related structures ALIGNMENT: Yes alignment normal PERIORBITAL: periorbital findings normal EYELID: eyelids normal CONJUNCTIVA: Yes conjunctivae normal SCLERA: sclerae normal PUPIL: Yes Equal, round and reactive pupils present Neck/C-Spine: COMMON NORMALS: full ROM, no lymphadenopathy, supple, no meningeal signs and no JVD GENERAL: Yes normal visual inspection and Yes trachea midline Chest: COMMONS NORMALS: normal inspection of the chest and normal palpation of entire chest wall Resp: COMMON NORMALS: normal respiratory effort, No retractions, No use of accessory muscles and clear to auscultation bilaterally EFFORT & INSPECTION: Yes able to speak in complete sentences and Yes symmetric chest movement AUSCULTATION: clear to auscultation bilaterally, no crackles, no rales, no rhonchi and no wheezes Cardio: COMMON NORMALS: no JVD, regular rate, regular rhythm, S1 normal heart sound present and S2 normal heart sound present RATE: regular rate RHYTHM: regular rhythm HEART SOUNDS: S1 normal heart sound present, S2 normal heart sound present, no click, no gallops, no murmurs and no rubs GI: COMMON NORMALS: Soft to palpation and No hepatosplenomegaly present PALPATION: Yes Soft to palpation, No Tenderness to palpation present (GI), No Guarding due to palpation present (GI), No Rigid due to palpation, Yes No hepatosplenomegaly present, No Hernia present, No Palpable mass present and No Pulsatile mass present : COMMON NORMALS: Yes no CVA tenderness BLADDER/KIDNEY EXAM: Yes no CVA tenderness Back/Pelvis: COMMON NORMALS: no CVA tenderness, thoracic and lumbar spine normal to inspection, no thoracic nor lumbar tenderness and thoraco-lumbar ROM normal Extremity: COMMON NORMALS: normal to inspection, full ROM, capillary refill normal, no joint enlargement, no clubbing, cyanosis or edema and no calf tenderness Neuro: COMMON NORMALS: patient oriented x3, CN's II-XII intact bilaterally, moves all extremities, no focal motor deficits and no sensory deficits noted SENSORIUM/ORIENTATION: Yes alert MENINGEAL SIGNS: Yes no meningeal signs SPEECH: speech normal Psych: COMMON NORMALS: mental status grossly normal, Normal thought process present, cooperative, normal affect, speech normal and activity/motor behavior normal SPEECH: Yes normal speech THOUGHT PROCESS: Normal thought process present Skin: NARRATIVE SKIN EXAM: Ecchymosis noted to chest and abdomen along anterior ventral portion. Course Vital Signs: Vital signs: Vital Signs Temperature 97.8 F 05/01/20 00:37 Pulse Rate 98 05/01/20 01:30 Respiratory Rate 18 05/01/20 01:30 Blood Pressure 99/64 05/01/20 01:30 Pulse Oximetry 96 05/01/20 01:30 MDM - General Adult MDM Narrative: Medical decision making narrative: The case was reviewed with Dr. Pendleton. She understands the patient's labs are worsening. I have talked with Srikanth head and he wants to go home after a blood transfusion. He denies being in any pain. He is alert of sound mind at this time. I have tried to contact his sister per Dr. Pendleton instruction but have been unable to reach her. Patient states ultimately this is his decision and family has been supportive. He simply wants to get the blood so he can feel better at home and to be discharged. He understands he is welcome to return here at any time should his symptoms change or worsen or he simply change his mind. Lab Data: Attestation: I reviewed the patient's lab results. Labs: Lab Results 05/01/20 05/01/20 05/01/20 Range/Units 00:48 00:48 00:48 WBC 14.7 H (4.0-10.0) 10^3/ uL RBC 1.97 L (4.1-5.3) 10^6/u L Hgb 7.2 L (11.7-16.6) g/dL Hct 22.3 L (42.0-52.0) % MCV 113.2 H (80-94) fL MCH 36.5 H (28.0-34.0) pg MCHC 32.3 (30.0-36.0) g/dL RDW 16.8 H (12.1-15.1) % Plt Count 96 L (130-400) 10^3/c mm MPV 9.4 (7.4-10.4) fL Neut % (Auto) 77.2 % Lymph % (Auto) 7.7 % Buchanan % (Auto) 13.2 % Eos % (Auto) 0.1 % Baso % (Auto) 0.3 % Neut # (Auto) 11.39 H (1.8-7.7) 10^3/u L Lymph # (Auto) 1.1 (0.8-4.8) 10^3/u L Buchanan # (Auto) 1.9 H (0.2-0.9) 10^3/u L Eos # (Auto) 0.0 (0.0-0.8) 10^3/u L Baso # (Auto) 0.1 (0.0-0.1) 10^3/u L Nucleated RBC % (a uto) 0 % Nucleated RBCs # 0.0 /100WBC PT 38.40 H (12.1-14.9) SECO NDS INR 3.73 H (0.8-1.2) APTT 52.5 H (23.9-36.7) SECO NDS Sodium 131 L (136-145) mmol/L Potassium 3.9 (3.5-5.1) mmol/L Chloride 96 L (98-107) mmol/L Carbon Dioxide 27 (22-29) mmol/L Anion Gap 11.9 (5-19) BUN 15 (6-20) mg/dL Creatinine 0.9 (0.7-1.2) mg/dL GFR Calculation 86.7 L (90-130) mL/min Glucose 119 H (65-115) mg/dL Calculated Osmolal ity 274 L (285-295) mOsm/k g Calcium 8.7 (8.5-10.5) mg/dL Total Bilirubin 11.6 H* (0.15-1.2) mg/dL AST 67 H (0-40) U/L ALT 25 (0-41) U/L Alkaline Phosphata se 189 H (40-130) IU/L Total Protein 6.7 (6.6-8.7) g/dL Albumin 2.6 L (3.5-5.2) g/dL Globulin 4.1 (1.3-4.6) g/dL Blood Type Rho(D) Type Antibody Screen Crossmatch 05/01/20 Range/Units 00:48 WBC (4.0-10.0) 10^3/ uL RBC (4.1-5.3) 10^6/u L Hgb (11.7-16.6) g/dL Hct (42.0-52.0) % MCV (80-94) fL MCH (28.0-34.0) pg MCHC (30.0-36.0) g/dL RDW (12.1-15.1) % Plt Count (130-400) 10^3/c mm MPV (7.4-10.4) fL Neut % (Auto) % Lymph % (Auto) % Buchanan % (Auto) % Eos % (Auto) % Baso % (Auto) % Neut # (Auto) (1.8-7.7) 10^3/u L Lymph # (Auto) (0.8-4.8) 10^3/u L Buchanan # (Auto) (0.2-0.9) 10^3/u L Eos # (Auto) (0.0-0.8) 10^3/u L Baso # (Auto) (0.0-0.1) 10^3/u L Nucleated RBC % (a uto) % Nucleated RBCs # /100WBC PT (12.1-14.9) SECO NDS INR (0.8-1.2) APTT (23.9-36.7) SECO NDS Sodium (136-145) mmol/L Potassium (3.5-5.1) mmol/L Chloride (98-107) mmol/L Carbon Dioxide (22-29) mmol/L Anion Gap (5-19) BUN (6-20) mg/dL Creatinine (0.7-1.2) mg/dL GFR Calculation (90-130) mL/min Glucose (65-115) mg/dL Calculated Osmolal ity (285-295) mOsm/k g Calcium (8.5-10.5) mg/dL Total Bilirubin (0.15-1.2) mg/dL AST (0-40) U/L ALT (0-41) U/L Alkaline Phosphata se (40-130) IU/L Total Protein (6.6-8.7) g/dL Albumin (3.5-5.2) g/dL Globulin (1.3-4.6) g/dL Blood Type O Positive Rho(D) Type Positive Antibody Screen Negative Crossmatch See Detail Imaging Data^: CT Abd/Pel: Radiologist's impression: [address] [address] [address] Scan Report Signed Patient: Srikanth Reynoso Tiffaniehelga #: [id number] : 2Acct#:[id number] Age/Sex: 59 / MADM Date: 05/01/20 Loc: ERRoom/Bed: Attending Dr: Ordering Provider/Ordering MD: Joanne Penn DO Date of Service: 05/01/20 Procedure(s): CT abdomen pelvis w con* [id number] Accession Number(s): [id number] Report Number: [id number] PROCEDURE INFORMATION: Exam: CT Abdomen And Pelvis With Contrast Exam date and time: 05/01/2020 12:41 AM Age: 59 years old Clinical indication: Other: Abd bruising; Additional info: Abdominal pain TECHNIQUE: Imaging protocol: Computed tomography of the abdomen and pelvis with intravenous contrast. Radiation optimization: All CT scans at this facility use at least one of these dose optimization techniques: automated exposure control; mA and/or kV adjustment per patient size (includes targeted exams where dose is matched to clinical indication); or iterative reconstruction. Contrast material: OMNI 300; Contrast volume: 95 ml; Contrast route: INTRAVENOUS (IV); COMPARISON: CT abdomen pelvis w con* [id number] 12/11/2019 4:55 PM RADIATION DOSE METRICS: Total DLP (mGy-cm): 1392.69 FINDINGS: Lungs: Mild atelectasis at bilateral lung bases. Liver: The liver contour is nodular, consistent with cirrhosis. Gallbladder and bile ducts: Moderate amount of gas is noted in the gallbladder, consistent with history of biliary procedure. Common bile duct stent is noted with superior tip in the upper common bile duct and inferior tip in the descending duodenum. Gas is noted in the stent, consistent with communication with the duodenum. Pancreas: The main pancreatic duct is dilated (maximum 0.9 cm). Differential diagnosis includes ampullary obstruction, pancreatic duct obstruction, and intraductal papillary mucinous neoplasm. This finding is similar to prior study. Spleen: Unremarkable. Adrenal glands: Unremarkable. Kidneys and ureters: The kidneys are unremarkable. No renal stones identified. No hydronephrosis on either side. Stomach and bowel: No bowel obstruction identified. No diverticulitis identified. Appendix: A normal-appearing appendix is seen in the right lower quadrant. Intraperitoneal space: No free intraperitoneal air identified. Moderate ascites in the abdomen and pelvis, especially prominent in the perihepatic region. Vasculature: Extensive atherosclerotic aortoiliac calcification. No abdominal aortic aneurysm. Gastroesophageal varices are noted, consistent with portal hypertension. Recanalization of the umbilical vein, consistent with portal hypertension. Lymph nodes: Unremarkable. Urinary bladder: Unremarkable as visualized. Reproductive: Unremarkable as visualized. Bones/joints: Unremarkable. No acute fracture. Soft tissues: Unremarkable. Other findings: If additional or more detailed information is needed, an addendum can be generated on request. CT/CT abdomen pelvis w con* [id number] IMPRESSION: 1. Cirrhosis with manifestations of portal hypertension (moderate ascites, gastroesophageal varices, recanalization of umbilical vein). 2. The main pancreatic duct is dilated. Differential diagnosis includes ampullary obstruction, pancreatic duct obstruction, and intraductal papillary mucinous neoplasm. This finding is similar to prior study. Radiation Dose CTDIVOL = (mGy): DLP = 1392.69 (mGy-cm) Dictated By:Bernardo Jordan MD Signed By:Bernardo Jordanigned Date/Time:05/01/20138 DD/ 6 Discharge Plan Discharge Patient Disposition: Home Clinical Impression: Pancreatic cancer Qualifiers: Pancreatic malignancy location: unspecified Qualified Code(s): C25.9 - Malignant neoplasm of pancreas, unspecified Anemia Qualifiers: Anemia type: unspecified type Qualified Code(s): D64.9 - Anemia, unspecified Condition: Stable Prescriptions: No Action melatonin 10 mg tablet 10 mg PO .at bedtime Qty: 30 RF: 0 cephalexin [Keflex] 500 mg capsule 500 mg PO TID 7 Days Qty: 21 RF: 0 gabapentin 600 mg tablet 600 mg PO QID 30 Days Qty: 120 RF: 2 furosemide 80 mg tablet 80 mg PO BID 30 Days Qty: 60 RF: 2 ondansetron HCl 4 mg tablet 4 mg PO Q8H PRN (Reason: nausea and vomiting) Qty: 30 RF: 2 pantoprazole 40 mg tablet,delayed release (DR/EC) 40 mg PO DAILY PRN (Reason: heartburn) 30 Days Qty: 30 RF: 2 potassium chloride 20 mEq tablet extended release 20 meq PO BID 30 Days Qty: 60 RF: 2 trazodone 50 mg tablet 50 mg PO .at bedtime 14 Days Qty: 14 RF: 0 fentanyl 12 mcg/hr patch 72 hour 1 patch TRANSDERMA Q72H 15 Days Qty: 5 RF: 0 tramadol 50 mg tablet 50 mg PO QID PRN (Reason: pain) 14 Days Qty: 56 RF: 0 aspirin [Adult Aspirin Regimen] 81 mg tablet,delayed release (DR/EC) 81 mg PO DAILY RF: 0 hyoscyamine sulfate 0.125 mg tablet, sublingual 0.125 mg PO Q4H PRN (Reason: dyspepsia) Qty: 12 RF: 0 alcohol swabs Pads, Medicated 1 pad topical .PRN Qty: 100 RF: 0 morphine concentrate 100 mg/5 mL (20 mg/mL) solution 5 mg PO Q1H PRN (Reason: pain) 3 Days Qty: 30 RF: 0 lorazepam 0.5 mg tablet 0.5 mg PO Q4H PRN (Reason: anxiety, agitation, restlessness) 3 Days Qty: 12 RF: 1 Discharge Orders: Discharge Order (Routine); Ordered 05/01/20 Ordered By: Joanne Penn Referrals: Estrella Pendleton MD [Primary Care Provider] - 1-3 days (Call to talk with Dr. Pendleton as soon as possible and follow-up with her as needed. She is aware of everything that took place tonight.) Discharge Diet: Usual diet Discharge Activity: Increase activity as tolerated Activity Restrictions/Additional Instructions: Please return to the ER immediately for any of the signs or symptoms listed on your discharge instruction sheets, worsening/changing of your symptoms, you are not getting better as quickly as expected, or for ANY other cause or concerns. Mr. Reynoso if you have any problems at all or you have increased pain, you become scared or have any other issues at all please return to the ER immediately for recheck. God bless you and if you need anything at all we are always here for you. Coding Level of Care Code ED [facility] Former Hand for Rodolfo Haynes
[2020-05-01] MEDS: iohexol 300 mg/mL 100 mL Btl IV (01:05)
[2020-05-01] MEDS: sodium chloride 0.9% 1,000 ML 50 ML IV (01:07)
[2020-05-01 01:17] LABS: Basophils # 0.1 10^3/uL (0.0-0.1); Basophils % 0.3 %; Eosinophils % 0.1 %; Hematocrit 22.3 % (42.0-52.0); Hemoglobin 7.2 g/dL (11.7-16.6); Lymphocytes # 1.1 10^3/uL (0.8-4.8); Lymphocytes % 7.7 %; Mean Corpuscular HGB Conc 32.3 g/dL (30.0-36.0); Mean Corpuscular Hemoglobin 36.5 pg (28.0-34.0); Mean Corpuscular Volume 113.2 fL (80-94); Mean Platelet Volume 9.4 fL (7.4-10.4); Monocytes # 1.9 10^3/uL (0.2-0.9); Monocytes % 13.2 %; Neutrophils # 11.39 10^3/uL (1.8-7.7); Neutrophils % 77.2 %; Nucleated Red Blood Cells % 0 %; Platelet Count 96 10^3/cmm (130-400); Red Blood Count 1.97 10^6/uL (4.1-5.3); Red Cell Distribution Width 16.8 % (12.1-15.1); White Blood Count 14.7 10^3/uL (4.0-10.0)
[2020-05-01 01:24] LABS: INR 3.73 (0.8-1.2)
[2020-05-01 01:25] LABS: Partial Thromboplastin Time 52.5 SECONDS (23.9-36.7)
[2020-05-01 01:35] LABS: Alanine Aminotransferase 25 U/L (0-41); Albumin Level 2.6 g/dL (3.5-5.2); Alkaline Phosphatase 189 IU/L (40-130); Anion Gap 11.9 (5-19); Aspartate Amino Transferase 67 U/L (0-40); Blood Urea Nitrogen 15 mg/dL (6-20); Calcium 8.7 mg/dL (8.5-10.5); Carbon Dioxide 27 mmol/L (22-29); Chloride 96 mmol/L (98-107); Globulin 4.1 g/dL (1.3-4.6); Glomerular Filtration Rate 86.7 mL/min (90-130); Glucose 119 mg/dL (65-115); Osmolality Calculated 274 mOsm/kg (285-295); Potassium 3.9 mmol/L (3.5-5.1); Sodium 131 mmol/L (136-145); Total Protein 6.7 g/dL (6.6-8.7)
[2020-05-01 01:44] LABS: Total Bilirubin 11.6 mg/dL (0.15-1.2)
--- NOTE | 2020-05-01 05:52 | PC.NURSE ---
PT 2nd unit of blood stopped due to increase in respirations, heart rate and temp. Pt denies any symptoms at this time. Unit of blood returned to the blood bank.
[2020-05-01] MEDS: diphenhydrAMINE 50 mg/mL SDV 1mL 25 MG IVP (06:06)
== END 2020-05-01 08:47 | disposition home or self-care (01) ==
PROVIDERS: Emergency Provider Emergency Medicine; PCP Family Medicine
DX: C25.9 Malignant neoplasm of pancreas, unspecified (principal); D64.9 Anemia, unspecified; Z79.82 Long term (current) use of aspirin; I11.0 Hypertensive heart disease with heart failure; I50.9 Heart failure, unspecified; I25.10 Atherosclerotic heart disease of native coronary artery without angina pectoris; E78.5 Hyperlipidemia, unspecified; F17.210 Nicotine dependence, cigarettes, uncomplicated
CPT/HCPCS: 12345; 36430; 74177; 80053; 85025; 85610; 85730; 86850; 86900; 86920; 96361; 96374; 99283; 99284; J1200; J7030; P9016; Q9967